=== PATIENT | female | born 1965 | race Hispanic/Latino ===

== ENCOUNTER 2016-09-17 22:58 | Inpatient (IN) | payer MEDICAID ==
[2016-09-17 23:55] VITALS: O2SAT 98
[2016-09-18] MEDS ORDERED: TDAP Vaccine 0.5 mL Syr IM ONE (00:32)
[2016-09-18 01:37] LABS: ADD MANUAL DIFF? NO
[2016-09-18 01:44] LABS: BASO # 0.03 K/mm3 (0.0-2.0); BASO % 0.4 % (0.0-3.0); EOS # 0.2 (0.0-0.7); EOS % 3.3 % (1.5-5.0); GRAN # 3.66 (1.4-6.5); GRAN % 54.9 % (50.0-68.0); HEMATOCRIT 28.3 % (36.0-48.0); LYMPH # 1.7 (1.2-3.4); LYMPH % 25.8 % (22.0-35.0); MEAN CELL VOLUME 88.7 fL (80.0-105.0); MEAN CORPUSCULAR HEMOGLOBIN 29.5 pg (25.0-35.0); MEAN CORPUSCULAR HGB CONC 33.2 g/dl (31.0-37.0); MEAN PLATELET VOLUME 9.2 fl (7.0-11.0); MONO % 15.6 % (1.0-6.0); PLATELET COUNT 240 10^3/uL (120.0-450.0); RED CELL DISTRIBUTION WIDTH 16.1 % (11.5-14.5); WHITE BLOOD COUNT 6.7 10^3/ul (4.5-11.0)
[2016-09-18 01:48] LABS: ALB/GLOB RATIO 1.1 (1.1-1.8); ALKALINE PHOSPHATASE 63 U/L (38-133); ALT/SGPT 26 U/L (7-56); AST/SGOT 35 U/L (15-39); BILIRUBIN,TOTAL 0.3 mg/dL (0.2-1.3); BLOOD UREA NITROGEN 27 mg/dL (7-21); CALCIUM 8.6 mg/dL (8.4-10.5); CARBON DIOXIDE 22 mmol/L (21-33); CHLORIDE 104 mmol/L (95-110); GFR AFRICAN-AMERICAN > 60; GLUCOSE,RANDOM 110 mg/dL (70-110); POTASSIUM 4.1 mmol/L (3.6-5.0); SODIUM 136 mmol/L (132-148); TOTAL PROTEIN 6.3 g/dL (5.8-8.3)
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
[2016-09-18 03:37] LABS: URINE BILIRUBIN NEGATIVE (NEGATIVE); URINE BLOOD NEGATIVE (NEGATIVE); URINE GLUCOSE (UA) NEGATIVE (NEGATIVE); URINE KETONE NEGATIVE (NEGATIVE); URINE LEUKOCYTE ESTERASE SMALL Leu/uL (NEGATIVE); URINE PROTEIN NEGATIVE mg/dL (<30 mg/dL); URINE UROBILINOGEN 0.2 E.U./dL (<1 E.U./dL)
[2016-09-18 03:57] LABS: URINE APPEARANCE SL CLOUDY (CLEAR); URINE COLOR YELLOW (YELLOW)
[2016-09-18 03:59] LABS: URINE BACTERIA FEW (NEG); URINE RBC 0 - 2 /hpf (0-2); URINE WBC 0 - 2 /hpf (0-6)
--- NOTE | 2016-09-18 07:30 | CT ---
PROCEDURE: CT HEAD WITHOUT CONTRAST. HISTORY: ams/depression COMPARISON: None available. TECHNIQUE: Axial computed tomography images were obtained through the head/brain without intravenous contrast. Radiation dose: Total exam DLP = 709.26 mGy-cm. This CT exam was performed using one or more of the following dose reduction techniques: Automated exposure control, adjustment of the mA and/or kV according to patient size, and/or use of iterative reconstruction technique. FINDINGS: HEMORRHAGE: No intracranial hemorrhage. BRAIN: No mass effect or edema. Mild cerebral atrophy and most prominent in the frontal lobes. Minimal periventricular chronic microvascular white matter ischemic change. No evidence of acute infarct. VENTRICLES: Unremarkable. No hydrocephalus. CALVARIUM: Unremarkable. PARANASAL SINUSES: Mild chronic ethmoid sinusitis. MASTOID AIR CELLS: Unremarkable as visualized. No inflammatory changes. OTHER FINDINGS: None. IMPRESSION: No intracranial mass, hemorrhage or evidence of acute infarct. Preliminary interpretation of this examination was reported by [facility] at 1:56 a.m. on 09/18/2016. There is concurrence of this report with the preliminary interpretation.
--- NOTE | 2016-09-18 07:56 | RAD ---
HISTORY: pes eval COMPARISON: No prior. FINDINGS: LUNGS: No active pulmonary disease. PLEURA: No significant pleural effusion identified, no pneumothorax apparent. CARDIOVASCULAR: Normal. OSSEOUS STRUCTURES: No significant abnormalities. VISUALIZED UPPER ABDOMEN: Normal. OTHER FINDINGS: None. IMPRESSION: No active disease.
--- NOTE | 2016-09-18 11:16 | CARD ---
APPROVED REPORT EKG Measurement Heart [id number] <Conclusion> Normal sinus rhythm Normal ECG
[2016-09-18] MEDS ORDERED: Magnesium Hydroxide Susp 30 ml UD PO PRN (14:38)
[2016-09-18] MEDS ORDERED: Alum-Mag Hydrox-Simethicone Susp (30 mL) PO PRN (14:39)
[2016-09-18] MEDS: Divalproex 500 mg DR(BID formulation) PO SCH (17:50)
[2016-09-19 08:30] LABS: CHOLESTEROL 131 mg/dL (130-200); GLUCOSE,FASTING 86 mg/dL (65-110)
[2016-09-19] MEDS: Divalproex 500 mg DR(BID formulation) PO SCH ×2 (08:51→16:23)
[2016-09-19] MEDS ORDERED: Albuterol-Ipratrop 3 mg / 0.5 (3 ml) UD IH PRN (12:49)
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
--- NOTE | 2016-09-19 13:48 | RAD ---
PROCEDURE: CHEST RADIOGRAPH, 1 VIEW HISTORY: r/o pneumonia COMPARISON: 09/19/2015 FINDINGS: LUNGS: Clear. PLEURA: No pneumothorax or pleural fluid seen. CARDIOVASCULAR: Normal. OSSEOUS STRUCTURES: No significant abnormalities. VISUALIZED UPPER ABDOMEN: Normal. OTHER FINDINGS: None. IMPRESSION: No active disease. . No pulmonary infiltrate appreciated
[2016-09-19] MEDS ORDERED: Budesonide 0.5 mg/2 ml Inhal Susp UD IH SCH (20:00)
[2016-09-19] MEDS ORDERED: Arformoterol 15 mcg/2 ml Inh Sol IH SCH (20:00)
[2016-09-19] MEDS ORDERED: Albuterol-Ipratrop 3 mg / 0.5 (3 ml) UD IH SCH (20:00)
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
[2016-09-20] MEDS: Divalproex 500 mg DR(BID formulation) PO SCH ×2 (08:23→16:02)
[2016-09-20] MEDS: Pantoprazole 40 mg EC Tab PO SCH (08:25)
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
[2016-09-21] MEDS: Divalproex 500 mg DR(BID formulation) PO SCH ×2 (08:56→18:17)
[2016-09-21] MEDS: Pantoprazole 40 mg EC Tab PO SCH (09:02)
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
[2016-09-22] MEDS: Pantoprazole 40 mg EC Tab PO SCH (08:14)
[2016-09-22] MEDS: Divalproex 500 mg DR(BID formulation) PO SCH ×2 (08:17→16:17)
--- NOTE | 2016-09-22 09:37 | PCM.PYCHPN ---
Psychiatric Progress Note - Psychiatric Progress Note Patient seen today, length of contact: 25 min Patient Chief Complaint: better Problems Identified/Issues Discussed: I reviewed recent notes and met with patient at bedside. She's calm, well- groomed and well-oriented to circumstances. Patient reports feeling better since admission and denies any new concerns. She feels more hopeful and denies wishes or suicidal thoughts. Affect demonstrates appropriate range and reactivity. Her thought process is coherent and responses are relevant to questioning. Delusions were not elicited. Regarding her comfort level, patient denies any new discomfort or pain. She has been tolerating her medications very well. Patient reports that sleep is fair except for continued nightmares. Nursing notes indicate the patient has been pleasant and superficially friendly. She remains in good control. There were no behavioral issues overnight. Diagnostic Results: Depressed and anxious Medication Change: No ( ) Medical Record Reviewed: Yes (reports, labs, vitals, notes) Mental Status Examination - Cognitive Function Orientation: Person, Place, Situation, Time Memory: Intact Attention: WNL Concentration: WNL Association: WNL Fund of Knowledge: WNL - Mood Mood: Neutral (better) - Affect Affect: Other (appropriately reactive) - Speech Speech: Appropriate - Formal Thought Process Formal Thought Process: No Impairment - Suicidal Ideation Suicidal Ideation: No - Homicidal Ideation Homicidal Ideation: No Goal/Treatment Plan - Goal/Treatment Plan Need for Continued Stay: Discharge may exacerbated symptoms (Working on appropriate placement) Progress Toward Problem(s) and Goals/Treatment Plan: * c/w current tx and plan * No new labs overnight * Vitals reviewed and noted below: Selected Entries 09/21/16 09/21/16 09/21/16 07:14 08:58 16:16 Temperature 97.0 F L Pulse Rate 59 L 60 62 Respiratory 20 Rate Blood Pressure 115/68 115/68 136/87 09/21/16 18:18 Temperature Pulse Rate 62 Respiratory Rate Blood Pressure 136/87
[2016-09-23] MEDS: Divalproex 500 mg DR(BID formulation) PO SCH ×2 (08:01→18:20)
[2016-09-23] MEDS: Pantoprazole 40 mg EC Tab PO SCH (08:02)
--- NOTE | 2016-09-23 08:39 | PCM.PYCHPN ---
Psychiatric Progress Note - Psychiatric Progress Note Patient seen today, length of contact: 25 min Patient Chief Complaint: better Problems Identified/Issues Discussed: I reviewed recent notes and met with patient at bedside. She's calm, well- groomed and well-oriented to circumstances. Patient reports feeling better since admission and denies any new concerns. She feels more hopeful and denies wishes or suicidal thoughts. Affect demonstrates appropriate range and reactivity. Her thought process is coherent and responses are relevant to questioning. Delusions were not elicited. Regarding her comfort level, patient denies any new discomfort or pain. She has been tolerating her medications very well. Anxiety is in better control with Ativan. Patient reports that sleep is "pretty good" except for continued nightmares. Nursing notes indicate the patient has been pleasant and superficially friendly. She remains in good control. There were no behavioral issues over the weekend. Diagnostic Results: Depressed and anxious Medication Change: No ( ) Medical Record Reviewed: Yes (reports, labs, vitals, notes) Mental Status Examination - Cognitive Function Orientation: Person, Place, Situation, Time Memory: Intact Attention: WNL Concentration: WNL Association: WNL Fund of Knowledge: WNL - Mood Mood: Neutral (better) - Affect Affect: Other (appropriately reactive) - Speech Speech: Appropriate - Formal Thought Process Formal Thought Process: No Impairment - Suicidal Ideation Suicidal Ideation: No - Homicidal Ideation Homicidal Ideation: No Goal/Treatment Plan - Goal/Treatment Plan Need for Continued Stay: Discharge may exacerbated symptoms (Working on appropriate placement) Progress Toward Problem(s) and Goals/Treatment Plan: * c/w current tx and plan * No new labs over the weekend * Vitals reviewed and noted below: Selected Entries 09/23/16 07:31 Temperature 97.7 F Pulse Rate 64 Respiratory 18 Rate Blood Pressure 148/94 H
[2016-09-24 06:45] VITALS: RESP 20
[2016-09-24] MEDS: Pantoprazole 40 mg EC Tab PO SCH (08:06)
[2016-09-24] MEDS: Divalproex 500 mg DR(BID formulation) PO SCH ×2 (08:06→16:04)
[2016-09-24 16:08] VITALS: PULSE 67
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
[2016-09-25] MEDS: Pantoprazole 40 mg EC Tab PO SCH (06:26)
[2016-09-25 07:10] VITALS: BP 112/74; TEMP 97.5
[2016-09-25] MEDS: Divalproex 500 mg DR(BID formulation) PO SCH (08:35)
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
== END 2016-09-25 14:00 | disposition home or self-care (01) | DRG 427 ==
LOC: ED 22:58 → ERH 09-18 11:29 → MERGE 09-18 11:29 → PSYC 09-18 12:31
PROVIDERS: ADMIT Psychiatry & Neurology Addiction Medicine; ATTEND Psychiatry & Neurology Addiction Medicine
PROC: GZ3ZZZZ Medication Management (ICD-10-PCS; principal; 2016-09-18)
DX: F43.24 Adjustment disorder with disturbance of conduct (principal); R45.851 Suicidal ideations; F39 Unspecified mood [affective] disorder; I10 Essential (primary) hypertension; N39.0 Urinary tract infection, site not specified; J44.9 Chronic obstructive pulmonary disease, unspecified; F41.9 Anxiety disorder, unspecified; F10.20 Alcohol dependence, uncomplicated; I25.10 Atherosclerotic heart disease of native coronary artery without angina pectoris; J06.9 Acute upper respiratory infection, unspecified; F51.5 Nightmare disorder; Z91.410 Personal history of adult physical and sexual abuse; Z59.0 Homelessness; I25.2 Old myocardial infarction

== ENCOUNTER 2016-10-06 13:50 | Inpatient (IN) | payer MEDICAID ==
[2016-10-06 14:01] VITALS: BMI 18.3
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
[2016-10-06 15:17] LABS: ADD MANUAL DIFF? NO
[2016-10-06 15:30] LABS: ALB/GLOB RATIO 1.2 (1.1-1.8); ALKALINE PHOSPHATASE 90 U/L (38-133); ALT/SGPT 22 U/L (7-56); AST/SGOT 30 U/L (15-39); BILIRUBIN,TOTAL 0.3 mg/dL (0.2-1.3); BLOOD UREA NITROGEN 19 mg/dL (7-21); CALCIUM 9.1 mg/dL (8.4-10.5); CARBON DIOXIDE 24 mmol/L (21-33); CHLORIDE 100 mmol/L (98-107); GFR AFRICAN-AMERICAN > 60; GLUCOSE,RANDOM 90 mg/dL (70-110); LIPASE 689 U/L (23-300); POTASSIUM 4.1 mmol/L (3.6-5.0); SODIUM 134 mmol/L (132-148); TOTAL PROTEIN 7.4 g/dL (5.8-8.3)
[2016-10-06 15:32] LABS: BASO # 0.03 K/mm3 (0.0-2.0); BASO % 0.5 % (0.0-3.0); EOS # 0.2 (0.0-0.7); EOS % 2.7 % (1.5-5.0); GRAN # 2.59 (1.4-6.5); GRAN % 44.4 % (50.0-68.0); HEMATOCRIT 32.2 % (36.0-48.0); LYMPH # 2.4 (1.2-3.4); LYMPH % 40.7 % (22.0-35.0); MEAN CORPUSCULAR HEMOGLOBIN 29.3 pg (25.0-35.0); MEAN CORPUSCULAR HGB CONC 32.9 g/dl (31.0-37.0); MEAN PLATELET VOLUME 9.6 fl (7.0-11.0); MONO # 0.7 (0.1-0.6); MONO % 11.7 % (1.0-6.0); PLATELET COUNT 230 10^3/uL (120.0-450.0); RED CELL DISTRIBUTION WIDTH 16.2 % (11.5-14.5); WHITE BLOOD COUNT 5.8 10^3/ul (4.5-11.0)
--- NOTE | 2016-10-06 15:44 | RAD ---
HISTORY: psych, cough COMPARISON: 09/19/2016 FINDINGS: LUNGS: No focal airspace opacity. PLEURA: No significant pleural effusion identified, no pneumothorax apparent. CARDIOVASCULAR: Normal. OSSEOUS STRUCTURES: No significant abnormalities. VISUALIZED UPPER ABDOMEN: Normal. OTHER FINDINGS: None. IMPRESSION: No focal airspace opacity. No significant interval change.
[2016-10-06 15:53] LABS: PH,URINE 6.5 (4.7-8.0); URINE BILIRUBIN NEGATIVE (NEGATIVE); URINE BLOOD NEGATIVE (NEGATIVE); URINE GLUCOSE (UA) NEGATIVE (NEGATIVE); URINE KETONE NEGATIVE (NEGATIVE); URINE LEUKOCYTE ESTERASE NEGATIVE Leu/uL (NEGATIVE); URINE PROTEIN NEGATIVE mg/dL (<30 mg/dL); URINE UROBILINOGEN 0.2 E.U./dL (<1 E.U./dL)
[2016-10-06 15:54] LABS: URINE APPEARANCE CLEAR (CLEAR); URINE COLOR YELLOW (YELLOW)
[2016-10-06 19:14] VITALS: O2SAT 97
[2016-10-07] MEDS ORDERED: Pantoprazole 40 mg EC Tab PO SCH (06:30)
[2016-10-07] MEDS: Divalproex 500 mg DR(BID formulation) PO SCH ×2 (09:00→17:58)
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
--- NOTE | 2016-10-07 10:29 | CARD ---
APPROVED REPORT EKG Measurement Heart [id number] <Conclusion> RSR Normal ECG No change
[2016-10-07 10:51] LABS: CHOLESTEROL 178 mg/dL (130-200)
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
[2016-10-08 06:53] VITALS: RESP 20
[2016-10-08] MEDS: Divalproex 500 mg DR(BID formulation) PO SCH ×3 (08:58→17:58)
[2016-10-08] MEDS: Pantoprazole 40 mg EC Tab PO SCH (09:04)
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
[2016-10-09] MEDS: Pantoprazole 40 mg EC Tab PO SCH (08:58)
[2016-10-09] MEDS: Divalproex 500 mg DR(BID formulation) PO SCH ×2 (08:58→16:56)
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
[2016-10-10 07:22] VITALS: BP 128/93; PULSE 56; TEMP 98.2
[2016-10-10] MEDS: Divalproex 500 mg DR(BID formulation) PO SCH (08:13)
[2016-10-10] MEDS: Pantoprazole 40 mg EC Tab PO SCH (08:14)
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
== END 2016-10-10 10:39 | disposition home or self-care (01) | DRG 427 ==
LOC: ED 13:50 → MERGE 18:03 → ERH 18:03 → PSYC 19:15
PROVIDERS: ADMIT Psychiatry & Neurology Psychiatry; ATTEND Psychiatry & Neurology Psychiatry
PROC: GZ3ZZZZ Medication Management (ICD-10-PCS; principal; 2016-10-06)
DX: F43.23 Adjustment disorder with mixed anxiety and depressed mood (principal); F60.3 Borderline personality disorder; F31.9 Bipolar disorder, unspecified; F10.20 Alcohol dependence, uncomplicated; I10 Essential (primary) hypertension; J44.9 Chronic obstructive pulmonary disease, unspecified; I25.10 Atherosclerotic heart disease of native coronary artery without angina pectoris; R19.7 Diarrhea, unspecified; F17.210 Nicotine dependence, cigarettes, uncomplicated; Z59.0 Homelessness; I25.2 Old myocardial infarction; Z90.49 Acquired absence of other specified parts of digestive tract

== ENCOUNTER 2017-01-08 13:35 | Observation (INO) | payer MEDICAID ==
[2017-01-08 13:37] VITALS: BMI 20.9
[2017-01-08] MEDS ORDERED: Folic Acid 1 MG, Thiamine 100 MG, Multivitamin (MVI) 10 ML in Dextrose 5%/0.45% NS 1,00... IV ONE (13:53)
--- NOTE | 2017-01-08 13:57 | ED PDOC ---
Arrival/HPI - General Time Seen by Provider: 01/08/17 13:38 Historian: Patient - History of Present Illness Narrative History of Present Illness (Text): 01/08/17 13:45 A 51 year old female, whose past medical history includes bipolar disorder and personality disorder, NM in 2005 and 2009, hypertension, etoh use, and depression, presents to the emergency department for chest pain, which began earlier today while power walking. The patient reports a "shock-like" pain on the right side of her chest, which worsens with deep breaths, shortness of breath, vomiting, dizziness, and mild dysuria. She admits to drinking one beer earlier today. The patient denies any headaches, cough, fever, back pain, changes in appetite, or any other complaints at this time. The patient notes that her and her extractor tender raw stock (Dr. Doherty) discussed to place in stents about 3 months ago, but the patient states she has not followed up. PMD: Dr. Scherer Time/Duration: 4-6 hours (earlier today) Symptom Onset: Sudden Symptom Course: Unchanged Activities at Onset: Light Context: Walking Past Medical History - Provider Review Nursing Documentation Reviewed: Yes - Infectious Disease Hx of Infectious Diseases: None - Tetanus Immunization Tetanus Immunization: Unknown - Cardiac Hx Coronary Artery Disease: Yes Hx Cardiac Arrhythmia: Yes - Pulmonary Hx Chronic Obstructive Pulmonary Disease (COPD): Yes Hx Pneumonia: Yes - Neurological Hx Migraine: Yes Hx Seizures: Yes (ETOH related) - HEENT Hx HEENT Disorder: No - Renal Hx Renal Disorder: No - Endocrine/Metabolic Hx Endocrine Disorders: No - Hematological/Oncological Hx Cancer: No - Integumentary Hx Dermatological Disorder: No - Musculoskeletal/Rheumatological Hx Fractures: Yes (right wrist due to fall) - Gastrointestinal Hx Gastrointestinal Disorders: No - Genitourinary/Gynecological Hx Sexually Transmitted Diseases: No - Psychiatric Hx Substance Use: Yes - Surgical History Hx Cholecystectomy: Yes - Anesthesia Hx Anesthesia: Yes Hx Anesthesia Reactions: No Hx Malignant Hyperthermia: No Family/Social History - Physician Review Nursing Documentation Reviewed: Yes Family/Social History: No Known Family HX Smoking Status: Heavy Smoker > 10 Cigarettes Daily Hx Alcohol Use: Yes Hx Substance Use: Yes Substance used: cocaine Allergies/Home Meds Allergies/Adverse Reactions: Allergies FISH Allergy (Verified 11/16/16 14:02) ITCHING Penicillins Adverse Reaction (Verified 11/16/16 14:02) URTICARIA Home Medications: Home Meds Medication Instructions Recorded Confirmed Divalproex [Depakote DR (*BID*)] 600 mg PO BID 12/23/16 01/08/17 Gabapentin [Neurontin] 900 mg PO BID 12/23/16 01/08/17 Review of Systems - Physician Review All systems were reviewed & negative as marked: Yes - Review of Systems Constitutional: absent: Fevers Respiratory: SOB Cardiovascular: Chest Pain Gastrointestinal: Vomiting. absent: Abdominal Pain Musculoskeletal: absent: Back Pain Neurological: Dizziness. absent: Headache Physical Exam Vital Signs Reviewed: Yes Vital Signs Temp Pulse Pulse Resp BP Pulse Ox 01/08/17 14:49 76 161/89 H 01/08/17 14:30 73 18 151/94 H 97 01/08/17 13:40 97.9 F 84 84 20 161/102 H 98 Temperature: Afebrile Blood Pressure: Hypertensive Pulse: Regular Respiratory Rate: Normal Appearance: Positive for: Well-Appearing, Non-Toxic, Comfortable Pain Distress: None Mental Status: Positive for: Alert and Oriented X 3 - Systems Exam Head: Present: Atraumatic, Normocephalic Pupils: Present: PERRL Conjunctiva: Present: Normal Mouth: Present: Moist Mucous Membranes Pharnyx: Present: Normal Neck: Present: Normal Range of Motion Respiratory/Chest: Present: Clear to Auscultation, Good Air Exchange. No: Respiratory Distress, Accessory Muscle Use Cardiovascular: Present: Regular Rate and Rhythm, Normal S1, S2. No: Murmurs Abdomen: Present: Normal Bowel Sounds. No: Tenderness, Distention, Peritoneal Signs Back: Present: Normal Inspection Upper Extremity: Present: Normal Inspection. No: Cyanosis, Edema Lower Extremity: Present: Normal Inspection. No: Edema Neurological: Present: GCS=15, CN II-XII Intact. No: Speech Normal (mild slurring of speech with alcohol on breath) Skin: Present: Warm, Dry, Normal Color. No: Rashes Psychiatric: Present: Alert, Oriented x 3, Normal Insight, Normal Concentration , Other (The patient has a light slurring of speech, consistent with alcohol use and she has alcohol on her breath. ) Medical Decision Making ED Course and Treatment: 01/08/17 13:55 Impression: A 51 year old female with chest pain with stated history of CAD. Differential Diagnosis included but are not limited to: muscular pain vs PE vs ACS vs GERD vs anxiety Plan: -- EKG -- Chest X-ray -- Labs -- Aspirin, IV fluids, Pepcid, Nitrostat -- Urinalysis -- Reassess and disposition Prior Visits: Notes and results from previous visits were reviewed. The patient was last seen in the emergency department on 12/23/16 for chest pain. The patient was discharged home. Progress Notes: 01/08/17 14:54 EKG: NSR @ 82; no ST/T changes; normal intervals; normal axis. Patient with history of CAD and is therefore high risk for ACS; initial EKG and CE are negative - will need further observation on tele. Discussed with Dr. Valle for placement on the hospitalist service. Minimal improvement with nitro and famotidine. Will give lopressor additionally and diazepam. - Lab Interpretations Lab Results: 01/08/17 13:45 01/08/17 13:45 Lab Results 01/08/17 13:45: Alcohol, Quantitative 166 H 01/08/17 13:45: Valproic Acid 64 01/08/17 13:45: Sodium 132, Potassium 4.4, Chloride 97 L, Carbon Dioxide 22, Anion Gap 17, BUN 22 H, Creatinine 0.7, Est GFR ( Amer) > 60, Est GFR ( Non-Af Amer) > 60, Random Glucose 86, Calcium 8.9, Magnesium 1.7, Total Bilirubin 0.3, AST 40 H, ALT 29, Alkaline Phosphatase 78, Lactate Dehydrogenase 581, Total Creatine Kinase 258 H, CK-MB (CK-2) 4.3 H, CK-MB (CK-2) % Cancelled, Troponin I < 0.01, NT-Pro-B Natriuret Pep 19.3, Total Protein 7.0, Albumin 4.3, Globulin 2.7, Albumin/Globulin Ratio 1.6, Lipase 235 01/08/17 13:45: PT 12.9 H, INR 1.19 H, APTT 32.4 H, D-Dimer, Quantitative 0.22 01/08/17 13:45: WBC 7.4 D, RBC 3.90, Hgb 11.1 L, Hct 33.1 L, MCV 84.9, MCH 28.5 , MCHC 33.5, RDW 16.7 H, Plt Count 269, MPV 9.4, Gran % 34.2 L, Lymph % (Auto) 51.4 H, Hanson % (Auto) 10.5 H, Eos % (Auto) 3.0, Baso % (Auto) 0.9, Gran # 2.53, Lymph # 3.8 H, Hanson # 0.8 H, Eos # 0.2, Baso # 0.07 - RAD Interpretation Radiology Orders: 01/08/17 13:52 CHEST PORTABLE [RAD] Stat - Medication Orders Current Medication Orders: Folic Acid 1 mg/ Thiamine HCl 100 mg/ Multivitamins/Vitamin C 10 ml/ Dextrose/ Sodium Chloride 1,011.2 mls @ 500 mls/hr IV ONCE ONE Stop: 01/08/17 15:54 Discontinued Medications Aspirin (Aspirin Chewable) 324 mg PO STAT STA Stop: 01/08/17 13:52 Last Admin: 01/08/17 14:11 Dose: 324 mg Diazepam (Valium) 5 mg PO ONCE ONE Stop: 01/08/17 14:30 Last Admin: 01/08/17 14:49 Dose: 5 mg Famotidine (Pepcid) 20 mg IVP STAT STA Stop: 01/08/17 13:53 Last Admin: 01/08/17 14:11 Dose: 20 mg Metoprolol Tartrate (Lopressor) 25 mg PO STAT STA Stop: 01/08/17 14:30 Last Admin: 01/08/17 14:49 Dose: 25 mg Nitroglycerin (Nitrostat Sl Tab) 0.4 mg SL STAT STA Stop: 01/08/17 13:52 Last Admin: 01/08/17 14:12 Dose: 0.4 mg - PA / EDITOR / Resident Statement MD/DO has reviewed & agrees with the documentation as recorded. - Scribe Statement The provider has reviewed the documentation as recorded by the John Paul Ochoa Provider Scribe Attestation: All medical record entries made by the John Paul were at my direction and personally dictated by me. I have reviewed the chart and agree that the record accurately reflects my personal performance of the history, physical exam, medical decision making, and the department course for this patient. I have also personally directed, reviewed, and agree with the discharge instructions and disposition. Disposition/Present on Arrival - Present on Arrival Any Indicators Present on Arrival: No History of DVT/PE: No History of Uncontrolled Diabetes: No Urinary Catheter: No History Surgical Site Infection Following: None - Disposition Have Diagnosis and Disposition been Completed?: Yes Diagnosis: Chest pain Disposition: HOSPITALIZED Disposition Time: 14:30 Patient Plan: Observation, Telemetry Condition: FAIR Discharge Instructions (ExitCare): Chest Pain (ED)
[2017-01-08 14:12] LABS: BASO # 0.07 K/mm3 (0.0-2.0); BASO % 0.9 % (0.0-3.0); EOS # 0.2 (0.0-0.7); GRAN # 2.53 (1.4-6.5); GRAN % 34.2 % (50.0-68.0); HEMOGLOBIN 11.1 g/dL (12.0-16.0); LYMPH # 3.8 (1.2-3.4); LYMPH % 51.4 % (22.0-35.0); MEAN CELL VOLUME 84.9 fl (80.0-105.0); MEAN CORPUSCULAR HEMOGLOBIN 28.5 pg (25.0-35.0); MEAN CORPUSCULAR HGB CONC 33.5 g/dl (31.0-37.0); MEAN PLATELET VOLUME 9.4 fl (7.0-11.0); MONO # 0.8 (0.1-0.6); MONO % 10.5 % (1.0-6.0); PLATELET COUNT 269 10^3/uL (120.0-450.0); RED CELL DISTRIBUTION WIDTH 16.7 % (11.5-14.5); WHITE BLOOD COUNT 7.4 10^3/ul (4.5-11.0)
[2017-01-08 14:15] LABS: ALB/GLOB RATIO 1.6 (1.1-1.8); ALBUMIN 4.3 g/dL (3.0-4.8); ALT/SGPT 29 U/L (7-56); AST/SGOT 40 U/L (15-39); BLOOD UREA NITROGEN 22 mg/dL (7-21); CALCIUM 8.9 mg/dL (8.4-10.5); GFR AFRICAN-AMERICAN > 60; GFR NON-AFRICAN AMERICAN > 60; LIPASE 235 U/L (23-300); MAGNESIUM 1.7 mg/dL (1.7-2.2)
[2017-01-08 14:17] LABS: D DIMER 0.22 mg/L FEU (0-0.50); INR 1.19 (0.93-1.08); PARTIAL THROMBOPLASTIN TIME 32.4 Seconds (23.7-30.8); PROTHROMBIN TIME 12.9 Seconds (9.9-11.8)
[2017-01-08 14:27] LABS: B-TYPE NATRIURETIC PEPTIDE 19.3 pg/mL (0-450); TROPONIN I < 0.01 ng/mL
[2017-01-08 14:30] LABS: CK-MB 4.3 ng/mL (0.0-3.6)
[2017-01-08 14:54] LABS: PH,URINE 6.5 (4.7-8.0); URINE BILIRUBIN NEGATIVE (NEGATIVE); URINE BLOOD NEGATIVE (NEGATIVE); URINE GLUCOSE (UA) NEGATIVE (NEGATIVE); URINE LEUKOCYTE ESTERASE NEGATIVE Leu/uL (NEGATIVE); URINE NITRATE NEGATIVE (NEGATIVE); URINE PROTEIN NEGATIVE mg/dL (<30 mg/dL); URINE UROBILINOGEN 0.2 E.U./dL (<1 E.U./dL)
[2017-01-08 14:58] LABS: URINE APPEARANCE CLEAR (CLEAR); URINE COLOR STRAW (YELLOW)
[2017-01-08 15:34] LABS: BARBITURATES, UR NEGATIVE (NEGATIVE); BENZODIAZEPINES, UR NEGATIVE (NEGATIVE); OPIATES, UR NEGATIVE (NEGATIVE); PHENCYCLIDINE, UR NEGATIVE (NEGATIVE)
--- NOTE | 2017-01-08 15:47 | CP.PCM.HP ---
<Jennifer Ventura - Last Filed: 01/08/17 20:35> History of Present Illness - History of Present Illness History of Present Illness: History & Physical CC: Chest pain, anxiety HPI: Pt is a 51 year old female with PMH of alcoholism, bipolar disorder, depression, HTN, COPD, AR x2 (2007, 2005), and "mild stroke" (2005), who presents today for complaints of right sided chest pain that began this afternoon. Patient describeds the pain as constant and pressure-like, rated 8/ 10, and is associated with SOB and high blood pressure (pt reports BP of 234/ 102 at that time). Patient states that she took Lisinopril and Clopidegrel this morning, but did not take anything for the chest pain after it began. She reports that after the onset of pain, she drank a large beer. Patient had 2 episodes of vomiting yesterday. Patient states that she had a stress test done 8 months ago, and last saw her manager critical care unit, Dr. Batres, 4 months ago, and was told both times that she needed a stent. She was seen at [facility] in August 2016, was seen by a manager critical care unit and had a normal echogardiogram; she was advised to continue ASA, Plavix, Lipitor, and Vasotec at that time. Pt additionally reports that she has been feeling very anxious lately. She states that she is currently under [place] [address] and does not have a place to live, and she is very stressed about this. She also states that she is a recovering alcoholic. She has been admitted in the past for psychiatric evaluation. Pt is a poor historian. Pt arrived to the hospital ambulatory. She was seen in the ED where she had labwork (negative cardiac enzymes, d-dimer), EKG and CXR which were normal, and was given Nitroglycerin, Pepcid, Lopressor, and Valium. PMD: Deondre Scherer Hand Spring Repairer Helper: Dr. Batres PMHX: HTN, AR x 2, CVA, seizures, COPD, depression, bipolar disorder, alcoholism PSHX: Tubal ligation Meds: Lisinopril, Clopidogrel, Neurontin, Depakote, Seroquel, Naltrexone All: PCN (anaphylaxis), fish Family hx: HTN, child has cystic fibrosis, grandmother had cervical CA Social hx: - smoking x 20 years (2-4 cigarettes per day) - EtOH - recovering alcoholic, (last beer was today) - former cocaine user - pt is homeless ROS: Constitutional: Denies fevers, chills HEENT: Denies cough, congestion CV: Chest pain Resp: (+) SOB, denies cough GI: Denies abdominal pain, (+) vomiting x 2 episodes yesterday : Denies hematuria Neuro: Denies weakness or paresthesias Psych: (+) anxiety, (+) bipolar disorder Present on Admission - Present on Admission Any Indicators Present on Admission: No History of DVT/PE: No History of Uncontrolled Diabetes: No Urinary Catheter: No Decubitus Ulcer Present: No Past Patient History - Infectious Disease Hx of Infectious Diseases: None - Tetanus Immunizations Tetanus Immunization: Unknown - Past Medical History & Family History Past Medical History?: Yes - Past Social History Smoking Status: Heavy Smoker > 10 Cigarettes Daily - CARDIAC Hx Cardia Arrhythmia: Yes - PULMONARY Hx Chronic Obstructive Pulmonary Disease (COPD): Yes Hx Pneumonia: Yes - NEUROLOGICAL Hx Migraine: Yes Hx Seizures: Yes (ETOH related) - HEENT Hx HEENT Problems: No - RENAL Hx Chronic Kidney Disease: No - ENDOCRINE/METABOLIC Hx Endocrine Disorders: No - HEMATOLOGICAL/ONCOLOGICAL Hx Cancer: No - INTEGUMENTARY Hx Dermatological Problems: No - MUSCULOSKELETAL/RHEUMATOLOGICAL Hx Fractures: Yes (right wrist due to fall) - GASTROINTESTINAL Hx Gastrointestinal Disorders: No - GENITOURINARY/GYNECOLOGICAL Hx Sexually Transmitted Disorders: No - PSYCHIATRIC Hx Substance Use: Yes - SURGICAL HISTORY Hx Cholecystectomy: Yes - ANESTHESIA Hx Anesthesia: Yes Hx Anesthesia Reactions: No Hx Malignant Hyperthermia: No Meds Home Medications: Home Medication List Medication Instructions Recorded Confirmed Type Aspirin [Ecotrin] 81 mg PO DAILY 01/09/17 Rx Atorvastatin [Lipitor] 10 mg PO DIN tab 01/09/17 Rx Clopidogrel [Plavix] 75 mg PO DAILY tab 01/09/17 Rx Folic Acid 1 mg PO DAILY #20 tab 01/09/17 Rx Gabapentin [Neurontin] 900 mg PO BID cap 01/09/17 Rx Lisinopril [Zestril] 10 mg PO DAILY tab 01/09/17 Rx Multivitamin Therapeutic Tab 1 tab PO 0800 #20 tab 01/09/17 Rx [Thera Tab] Naproxen [Anaprox DS] 550 mg PO BID #10 tab 01/09/17 Rx Nicotine 14 mg/24 hr [Nicoderm CQ] 1 patch TD DAILY #10 patch 01/09/17 Rx Pantoprazole [Protonix EC Tab] 40 mg PO ACB #30 ect 01/09/17 Rx Thiamine [Vitamin B1 Tab] 100 mg PO DAILY #30 tab 01/09/17 Rx Valproic Acid [Depakene] 500 mg PO BID sgl 01/09/17 Rx chlordiazePOXIDE [Librium] 50 mg PO Q4 #10 cap 01/09/17 Rx Allergies/Adverse Reactions: Allergies Allergy/AdvReac Type Severity Reaction Status Date / Time FISH Allergy ITCHING Verified 01/08/17 16:31 Penicillins AdvReac URTICARIA Verified 01/08/17 16:31 Physical Exam - Head Exam Head Exam: NORMAL INSPECTION - Eye Exam Eye Exam: EOMI, Normal appearance - Neck Exam Neck exam: Positive for: Full Rom, Normal Inspection - Respiratory Exam Respiratory Exam: Clear to Auscultation Bilateral, NORMAL BREATHING PATTERN. absent: Accessory Muscle Use, Respiratory Distress - Cardiovascular Exam Cardiovascular Exam: REGULAR RHYTHM. absent: Bradycardia, Tachycardia - GI/Abdominal Exam GI & Abdominal Exam: Normal Bowel Sounds - Extremities Exam Extremities exam: Positive for: full ROM, normal inspection - Neurological Exam Neurological exam: Alert, Normal Gait, Oriented x3 - Skin Skin Exam: Dry, Intact, Normal Color, Warm - Additional Findings Additional findings: PE: General: AAOx3, anxious, in mild distress Head: Normocephalic Skin: Warm, dry, not diaphoretic HEENT: Mucous membranes moist Heart and chest: Regular rate and rhythm, normal S1/S2, no murmurs, gallops, or rubs. (+) Reproducible R sided chest wall tenderness. Respiratory: Lungs CTA bilaterally, no rales, rhonchi, or wheezing GI: Abdomen soft, nondistended, nontender, no rebound or guarding Extremities: Good distal pulses, no lower extremity edema Neuro: CN 2-12 intact, patient is speaking without difficulty, moving all extremities. Psych: Patient is anxious, normal affect and mood. Results - Vital Signs Recent Vital Signs: Last Vital Signs Temp 97.9 F 01/08/17 13:40 Pulse 76 01/08/17 14:49 Resp 18 01/08/17 14:30 BP 161/89 H 01/08/17 14:49 Pulse Ox 97 01/08/17 14:30 - Labs Result Diagrams: 01/08/17 13:45 01/08/17 13:45 Labs: Laboratory Results - last 24 hr 01/08/17 01/08/17 14:36 15:00 Urine Color Straw Urine Appearance Clear Urine pH 6.5 Ur Specific [place] <= 1.005 Urine Protein Negative Urine Glucose (UA) Negative Urine Ketones Negative Urine Blood Negative Urine Nitrate Negative Urine Bilirubin Negative Urine Urobilinogen 0.2 Ur Leukocyte Esterase Negative Urine Opiates Screen Negative Urine Methadone Screen Negative Ur Barbiturates Screen Negative Ur Phencyclidine Scrn Negative Ur Amphetamines Screen Negative U Benzodiazepines Scrn Negative U Oth Cocaine Metabols Negative U Cannabinoids Screen Negative Assessment & Plan - Assessment and Plan (Free Text) Assessment: 51F presents with reproducible chest pain on right side. Patient has a past medical history of drug abuse, alcohol abuse and CAD. Plan: Assessment and Plan: 1. Chest pain, r/o ACS - repeat cardiac enzymes - IV fluids & pain control - cardiac consult - cardiac monitoring 2. Hypertension - monitor BP 3. Anxiety - Ativan as needed - psychiatric consult - social work consult 4. Alcohol abuse - aspiration precautions 5. H/O seizures - seizure precautions - continue Neurontin and Depakote Jennifer Ventura DO PGY1 - Date & Time Date: 01/08/17 Time: 20:30 <Lali Akhtar - Last Filed: 01/09/17 15:42> Results - Vital Signs Recent Vital Signs: Last Vital Signs Temp 98.2 F 01/09/17 12:00 Pulse 69 01/09/17 12:00 Resp 20 01/09/17 12:00 BP 130/76 01/09/17 12:00 Pulse Ox 98 01/09/17 05:38 - Labs Result Diagrams: 01/08/17 13:45 01/08/17 13:45 Labs: Laboratory Results - last 24 hr 01/08/17 01/08/17 01/09/17 15:45 20:40 02:05 Hemoglobin A1c 5.5 Troponin I < 0.01 < 0.01 Attending/Attestation - Attestation I have personally seen and examined this patient.: Yes I have fully participated in the care of the patient.: Yes I have reviewed all pertinent clinical information: Yes Notes (Text): 01/09/17 15:38 attending note; Patient seen and examined with resident in ER. Patient is a 51 year old female with PMH of alcoholism, anxiety depression, HTN , COPD,??? AR x2 (2007, 2005), and "mild stroke" (2005), who presents today for complaints of right sided chest pain that began this afternoon. patient has very unreliable history. History of AR and stroke not confirmed. Patient is currently complaining left-sided chest pain.admit to telemetry. Cardiac enzymes 3 ordered. Cardiology evaluation requested. elevated alcohol level: continue CIWA protocol. IV Ativan when necessary ordered for anxiety. psychiatric evaluation Requested. We will contact patient's primary manager critical care unit Dr. batres. Patient follows up with PMD Dr. Scherer.
[2017-01-08 15:48] LABS: HDL CHOLESTEROL 88 mg/dL (29-60)
[2017-01-08 15:59] LABS: LDL CHOLESTEROL 66 mg/dL (0-129)
--- NOTE | 2017-01-08 17:12 | RAD ---
HISTORY: Chest pain COMPARISON: 10/06/2016 FINDINGS: LUNGS: The lungs are well inflated. There is bibasilar subsegmental atelectasis. No focal consolidation. PLEURA: No significant pleural effusion identified, no pneumothorax apparent. CARDIOVASCULAR: Normal. OSSEOUS STRUCTURES: No significant abnormalities. VISUALIZED UPPER ABDOMEN: Normal. OTHER FINDINGS: None. IMPRESSION: No active pulmonary disease.
[2017-01-08] MEDS ORDERED: Divalproex 250 mg DR (BID formulation) PO SCH (18:00)
[2017-01-08] MEDS ORDERED: GABAPENTIN 900 MG PO SCH (18:00)
[2017-01-08] MEDS: Naproxen 550 mg Tab PO SCH (21:31)
--- NOTE | 2017-01-08 21:37 | CARD ---
APPROVED REPORT EKG Measurement Heart [id number] <Conclusion> Normal sinus rhythm Normal ECG
--- NOTE | 2017-01-09 01:44 | CON ---
DATE: 01/08/2017 LOCATION: The patient is in room 272, bed 2. REASON FOR CONSULTATION: Chest pain. HISTORY OF PRESENT ILLNESS: The patient is a 51-year-old female who has history of bipolar disorder, personality disorder, history of heavy drinking until 16 days ago, admitted with history since last 5 days. She has pain on the right lower chest along the sternal border, and the patient has local tenderness at that point, also it gets worse with breathing, also it gets worse with moving side to side. It as no relation to exertion. The patient states that last year she had stress test with Dr. Doherty at [facility], and it was told to be abnormal and she was suggested CAT, but she refused. The patient denies prior to discharge pain,any exertional chest pain. The patient states that 6 months ago, she was told she had high cholesterol, and she is known to have also COPD, seizure disorder related to alcohol, and migraine. PAST HISTORY: Positive for cholecystectomy, COPD, seizure disorder due to alcohol intake and migraine. PERSONAL HISTORY: Drinking habit till 16 days ago, but emergency room note mentioned that she also took one beer this morning. She states that she is still smoking 2 to 3 cigarettes a day. FAMILY HISTORY: She states that her grandmother had coronary artery disease. ALLERGIES: THE PATIENT IS ALLERGIC TO PENICILLIN AND FISH. MEDICATIONS AT HOME: She was taking atorvastatin, lisinopril, Plavix, Neurontin, and Depakote. REVIEW OF SYSTEMS: All the systems reviewed. Positive as mentioned in the history, others are negative. PHYSICAL EXAMINATION VITAL SIGNS: Blood pressure 148/95, respirations 18, pulse 62, and temperature 98.1. HEENT: Head is normocephalic. Eyes, pupils normal. Conjunctivae normal. Nose and throat normal. NECK: JVP low. Carotids equal. Thorax: AP diameter normal. LUNGS: Clear. CARDIOPULMONARY: S1 and S2. CHEST WALL: The patient has tenderness by the right sternal border, the area of the pain. ABDOMEN: Soft, nontender, no organomegaly. Bowel sounds normal. EXTREMITIES: No clubbing, no cyanosis, and no edema. LABORATORY DATA: EKG showed regular sinus rhythm, nonspecific ST-T changes. WBC 7.4, hemoglobin 11.1, hematocrit 33.1, and platelets 269. Sodium 132, potassium 4.4, BUN 22, and creatinine 0.7. Calcium, magnesium, and bilirubin normal. Troponin less than 0.01. Cholesterol 165, LDL 66, and HDL 88. TSH 0.79. Chest x-ray, no active pulmonary disease. DIAGNOSES: Chest pain, probably musculoskeletal with local tenderness, hypertension, bipolar disorder, personality disorder, history of migraine, seizure disorder due to alcoholism, and chronic obstructive pulmonary disease. PLAN: We will put the patient on naproxen 550 b.i.d. along with Protonix 40 daily. The patient is on valproic acid 500 mg b.i.d., folic acid 1 mg daily, gabapentin 900 mg b.i.d., Protonix has already been started 40 p.o. daily, and thiamine 100 mg daily. We will try to get stress test report from [facility] which was done last year and which according to the patient was abnormal. The patient follow with corduroy cutter operator in [place] Dr. Doherty. We will also add atorvastatin. The patient states she was taking at home. She does not remember the dose, but I will start 10 mg. We will follow. Noel Townsend MD
[2017-01-09 05:39] VITALS: O2SAT 98
[2017-01-09] MEDS ORDERED: Pantoprazole 40 mg EC Tab PO SCH (07:30)
--- NOTE | 2017-01-09 07:37 | CP.PCM.PN ---
Subjective - Date & Time of Evaluation Date of Evaluation: 01/09/17 Time of Evaluation: 07:33 - Subjective Subjective: PT S&E at bedside. DONNIEKeyannaON. Patient states she had a stress test at [facility]. Patient did not according to records. Will contact Dr. Doherty in [facility] to see if patient was seen there for a stent placement ([phone], spoke to biscuit packer of Dr. Mauricio Doherty at [facility] who did a stent placement of a Jade Lewis with the same date of as PT and biscuit packer stated patient had been seen by Dr. Doherty for an inpatient cath. Normal LVF found, non-critical CAD. No need for stent placement. Patient never followed up with the office after procedure). Patient denies F/C, N/V. Patient admits to Objective - Vital Signs/Intake and Output Vital Signs (last 24 hours): Temp Pulse Resp BP Pulse Ox 97.7 F 57 L 18 126/82 98 01/09/17 05:38 01/09/17 05:38 01/09/17 05:38 01/09/17 05:38 01/09/17 05:38 Intake and Output: 01/09/17 01/09/17 06:59 18:59 Intake Total 360 Balance 360 - Medications Medications: Current Medications Aspirin (Ecotrin) 81 mg PO DAILY [facility] Atorvastatin Calcium (Lipitor) 10 mg PO DIN [facility] Last Admin: 01/08/17 21:30 Dose: 10 mg Clopidogrel Bisulfate (Plavix) 75 mg PO DAILY [facility] Folic Acid (Folic Acid) 1 mg PO DAILY [facility] Gabapentin (Neurontin) 900 mg PO BID [facility] Last Admin: 01/08/17 17:52 Dose: 900 mg Lisinopril (Zestril) 10 mg PO DAILY [facility] Lorazepam (Ativan) 1 mg IVP Q3 PRN; Protocol PRN Reason: Anxiety Multivitamins (Thera Tab) 1 tab PO 0800 [facility] Naproxen (Anaprox Ds) 550 mg PO BID [facility] Last Admin: 01/08/17 21:31 Dose: 550 mg Pantoprazole Sodium (Protonix Ec Tab) 40 mg PO ACB [facility] Thiamine HCl (Vitamin B1 Tab) 100 mg PO DAILY [facility] Valproate Sodium (Depakene) 500 mg PO BID [facility] Last Admin: 01/08/17 17:53 Dose: 500 mg - Labs Labs: PT 12.9 Seconds (9.9-11.8) H 01/08/17 13:45 INR 1.19 (0.93-1.08) H 01/08/17 13:45 APTT 32.4 Seconds (23.7-30.8) H 01/08/17 13:45
[2017-01-09] MEDS ORDERED: Multivitamin Therapeutic Tab PO SCH (08:00)
[2017-01-09] MEDS: Naproxen 550 mg Tab PO SCH (09:54)
[2017-01-09 12:36] VITALS: RESP 20
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
--- NOTE | 2017-01-09 13:45 | PN ---
DATE: 01/09/2017 REASON FOR CONSULTATION: Chest pain. BRIEF CLINICAL HISTORY: This is a 51-year-old female with history of bipolar disorder, history of alcohol abuse, admitted with chest pain with atypical tenderness of the chest, admitted with alcoholic intoxication, and blood alcohol level is 166. Chest pain, is still having tenderness of the chest. SUBJECTIVE: Complaining of chest pain, which is tender on the chest. On pressing, the patient complains of chest pain, having the breakfast. OBJECTIVE: GENERAL: Lying flat in the bed, not in apparent distress. VITAL SIGNS: As follows; temperature afebrile, heart rate 57, and blood pressure 126/82. HEENT: PERRLA. Extraocular muscles intact. NECK: Supple. No carotid bruits or thyromegaly. CHEST: Clear to auscultation. HEART: S1 and S2 regular. ABDOMEN: Soft. EXTREMITIES: Clubbing and cyanosis negative. LABORATORY DATA: Blood workup as follows; blood alcohol level 166 and urine tox screen was negative for any substance. Chemistry as of yesterday shows sodium 138, potassium 4.4, chloride 97, carbon dioxide 22, anion gap of 17, BUN 22, and creatinine 0.7. Cholesterol level yesterday shows a triglyceride 98, total cholesterol 165, LDL 66, HDL 88, TSH 0.79, and troponin 0.01 x3 negative. WBC 7.4, hemoglobin 11.1, hematocrit 33.1, and platelet count 269. IMPRESSION: A 51-year-old female with a past medical history significant for alcohol abuse, chronic obstructive pulmonary disease, seizure disorder due to alcohol, and history of migraine, admitted here with chest pain, which is atypical, tenderness in the chest, and admitting blood alcohol level is 166 with alcoholic intoxication. The patient claims that she had in [facility] being seen by Dr. Doherty and she had a stress test there and was found to be abnormal and cardiac catheterization was offered, but the patient refused cardiac catheterization. She is still complaining of some chest pain, but so far all troponins are negative. No evidence of acute myocardial infarction. The patient had echocardiography done in 09/04/2016 in [facility] read by Dr. Ferrer that shows a normal size left ventricle, normal left ventricular function, ejection fraction was reported within normal limits. No segmental wall motion abnormality noted, Transmitral Doppler flow pattern suggestive of grade 1 diastolic dysfunction, right ventricular systolic pressure 28 within normal limits, no aortic regurgitation was noted, no mitral stenosis, and no mitral regurgitation was noted. Trace tricuspid regurgitation was noted dated 09/04/2016 in [facility]. As mentioned so far, troponin is negative and blood alcohol level was 166, the patient admitted with alcoholic intoxication. History of chronic obstructive pulmonary disease, history of seizure disorder, and history of migraine. RECOMMENDATIONS: We will get a copy from Dr. Doherty's office and if the patient is really abnormal and needs a cardiac catheterization, suggest cardiac catheterization, but so far no evidence of acute coronary syndrome, also office given the patient upon discharge, the patient can follow with Dr. Doherty, reinforcing bar setter. Thank you Dr. Akhtar for providing me the opportunity in taking care of Jade Shabazz. Noel Lai MD cc: Noel Lai MD, Lali Akhtar MD
--- NOTE | 2017-01-09 15:47 | CP.PCM.DIS ---
<LorenzoJennifer - Last Filed: 01/09/17 15:44> Provider - Provider Date of Admission: 01/08/17 14:31 Attending physician: Lali Akhtar MD Primary care physician: Roman Scherer Jr, MD Consults: Cardio Dr. Jaimie Dawn Time Spent in preparation of Discharge (in minutes): 20 Hospital Course - Lab Results Lab Results: Most Recent Lab Values WBC 7.4 10^3/ul (4.5-11.0) D 01/08/17 13:45 RBC 3.90 10^6/uL (3.5-6.1) 01/08/17 13:45 Hgb 11.1 g/dL (12.0-16.0) L 01/08/17 13:45 Hct 33.1 % (36.0-48.0) L 01/08/17 13:45 MCV 84.9 fl (80.0-105.0) 01/08/17 13:45 MCH 28.5 pg (25.0-35.0) 01/08/17 13:45 MCHC 33.5 g/dl (31.0-37.0) 01/08/17 13:45 RDW 16.7 % (11.5-14.5) H 01/08/17 13:45 Plt Count 269 10^3/uL (120.0-450.0) 01/08/17 13:45 MPV 9.4 fl (7.0-11.0) 01/08/17 13:45 Gran % 34.2 % (50.0-68.0) L 01/08/17 13:45 Lymph % (Auto) 51.4 % (22.0-35.0) H 01/08/17 13:45 Madison % (Auto) 10.5 % (1.0-6.0) H 01/08/17 13:45 Eos % (Auto) 3.0 % (1.5-5.0) 01/08/17 13:45 Baso % (Auto) 0.9 % (0.0-3.0) 01/08/17 13:45 Gran # 2.53 (1.4-6.5) 01/08/17 13:45 Lymph # 3.8 (1.2-3.4) H 01/08/17 13:45 Madison # 0.8 (0.1-0.6) H 01/08/17 13:45 Eos # 0.2 (0.0-0.7) 01/08/17 13:45 Baso # 0.07 K/mm3 (0.0-2.0) 01/08/17 13:45 PT 12.9 Seconds (9.9-11.8) H 01/08/17 13:45 INR 1.19 (0.93-1.08) H 01/08/17 13:45 APTT 32.4 Seconds (23.7-30.8) H 01/08/17 13:45 D-Dimer, Quantitative 0.22 mg/L FEU (0-0.50) 01/08/17 13:45 Sodium 132 mmol/L (132-148) 01/08/17 13:45 Potassium 4.4 mmol/L (3.6-5.0) 01/08/17 13:45 Chloride 97 mmol/L (98-107) L 01/08/17 13:45 Carbon Dioxide 22 mmol/L (21-33) 01/08/17 13:45 Anion Gap 17 (10-20) 01/08/17 13:45 BUN 22 mg/dL (7-21) H 01/08/17 13:45 Creatinine 0.7 mg/dL (0.5-1.4) 01/08/17 13:45 Est GFR ( Amer) > 60 01/08/17 13:45 Est GFR (Non-Af Amer) > 60 01/08/17 13:45 Random Glucose 86 mg/dL (70-110) 01/08/17 13:45 Hemoglobin A1c 5.5 % (4.2-6.5) 01/08/17 15:45 Calcium 8.9 mg/dL (8.4-10.5) 01/08/17 13:45 Magnesium 1.7 mg/dL (1.7-2.2) 01/08/17 13:45 Total Bilirubin 0.3 mg/dL (0.2-1.3) 01/08/17 13:45 AST 40 U/L (15-39) H 01/08/17 13:45 ALT 29 U/L (7-56) 01/08/17 13:45 Alkaline Phosphatase 78 U/L (38-133) 01/08/17 13:45 Lactate Dehydrogenase 581 U/L (333-699) 01/08/17 13:45 Total Creatine Kinase 258 U/L (35-230) H 01/08/17 13:45 CK-MB (CK-2) 4.3 ng/mL (0.0-3.6) H 01/08/17 13:45 CK-MB (CK-2) % Cancelled 01/08/17 13:45 Troponin I < 0.01 ng/mL 01/09/17 02:05 NT-Pro-B Natriuret Pep 19.3 pg/mL (0-450) 01/08/17 13:45 Total Protein 7.0 g/dL (5.8-8.3) 01/08/17 13:45 Albumin 4.3 g/dL (3.0-4.8) 01/08/17 13:45 Globulin 2.7 gm/dL 01/08/17 13:45 Albumin/Globulin Ratio 1.6 (1.1-1.8) 01/08/17 13:45 Triglycerides 98 mg/dL (35-160) 01/08/17 13:45 Cholesterol 165 mg/dL (130-200) 01/08/17 13:45 LDL Cholesterol Direct 66 mg/dL (0-129) 01/08/17 13:45 HDL Cholesterol 88 mg/dL (29-60) H 01/08/17 13:45 Lipase 235 U/L (23-300) 01/08/17 13:45 TSH 3rd Generation 0.79 mIU/mL (0.46-4.68) 01/08/17 13:45 Urine Color Straw (YELLOW) 01/08/17 14:36 Urine Appearance Clear (CLEAR) 01/08/17 14:36 Urine pH 6.5 (4.7-8.0) 01/08/17 14:36 Ur Specific [place] <= 1.005 (1.005-1.035) 01/08/17 14:36 Urine Protein Negative mg/dL (<30 mg/dL) 01/08/17 14:36 Urine Glucose (UA) Negative mg/dL (NEGATIVE) 01/08/17 14:36 Urine Ketones Negative mg/dL (NEGATIVE) 01/08/17 14:36 Urine Blood Negative (NEGATIVE) 01/08/17 14:36 Urine Nitrate Negative (NEGATIVE) 01/08/17 14:36 Urine Bilirubin Negative (NEGATIVE) 01/08/17 14:36 Urine Urobilinogen 0.2 E.U./dL (<1 E.U./dL) 01/08/17 14:36 Ur Leukocyte Esterase Negative Glory/uL (NEGATIVE) 01/08/17 14:36 Urine Opiates Screen Negative (NEGATIVE) 01/08/17 15:00 Urine Methadone Screen Negative (NEGATIVE) 01/08/17 15:00 Ur Barbiturates Screen Negative (NEGATIVE) 01/08/17 15:00 Valproic Acid 64 ug/mL (50.0-100.0) 01/08/17 13:45 Ur Phencyclidine Scrn Negative (NEGATIVE) 01/08/17 15:00 Ur Amphetamines Screen Negative (NEGATIVE) 01/08/17 15:00 U Benzodiazepines Scrn Negative (NEGATIVE) 01/08/17 15:00 U Oth Cocaine Metabols Negative (NEGATIVE) 01/08/17 15:00 U Cannabinoids Screen Negative (NEGATIVE) 01/08/17 15:00 Alcohol, Quantitative 166 mg/dL (0-10) H 01/08/17 13:45 - Hospital Course Hospital Course: Progress Note for Dr. Akhtar Patient was admitted to rule out ACS from chest pain that was reproducible on the right side. Negative Troponins. Normal EKG PT S&E at bedside. NAEON. Patient states she had a stress test at [facility]. Patient did not according to records. Will contact Dr. Doherty in [facility] to see if patient was seen there for a stent placement ([phone], spoke to sales secretary of Dr. Mauricio Doherty at [facility] who did a stent placement of a Jade Lewis with the same date of as PT and sales secretary stated patient had been seen by Dr. Doherty for an inpatient cath. Normal LVF found, non-critical CAD. No need for stent placement. Patient never followed up with the office after procedure). Patient is admitted to psychiatry. No medical interventions needed at this time - Date & Time of H&P Date of H&P: 01/09/17 Time of H&P: 15:44 Discharge Exam - Head Exam Head Exam: ATRAUMATIC, NORMOCEPHALIC - Eye Exam Eye Exam: EOMI, Normal appearance - ENT Exam ENT Exam: Mucous Membranes Moist - Neck Exam Neck exam: Full Rom, Normal Inspection - Respiratory Exam Respiratory Exam: Clear to PA & Lateral, NORMAL BREATHING PATTERN, UNREMARKABLE. absent: Accessory Muscle Use, Respiratory Distress - Cardiovascular Exam Cardiovascular Exam: REGULAR RHYTHM. absent: Bradycardia, Tachycardia - GI/Abdominal Exam GI & Abdominal Exam: Normal Bowel Sounds, Unremarkable. absent: Diminished Bowel Sounds, Hyperactive Bowel Sounds, Organomegaly, Tenderness - Psychiatric Exam Psychiatric exam: Anxious, Normal Affect, Normal Mood - Skin Skin Exam: Dry, Intact, Normal Color, Warm Discharge Plan - Discharge Medications Prescriptions: chlordiazePOXIDE [Librium] 50 mg PO Q4 #10 cap Folic Acid 1 mg PO DAILY #20 tab Multivitamin Therapeutic Tab [Thera Tab] 1 tab PO 0800 #20 tab Naproxen [Anaprox DS] 550 mg PO BID #10 tab Nicotine 14 mg/24 hr [Nicoderm CQ] 1 patch TD DAILY #10 patch Pantoprazole [Protonix EC Tab] 40 mg PO ACB #30 ect Thiamine [Vitamin B1 Tab] 100 mg PO DAILY #30 tab - Follow Up Plan Condition: FAIR Disposition: HOME/ ROUTINE Instructions: Chest Pain (DC), Chest Pain (GEN), How to Stop Smoking (DC), Cigarette Smoking and Your Health (GEN), Alcohol Intoxication (DC), Abuse of Alcohol (DC) Additional Instructions: 1. continue with current home medication 2. follow up with speeder frame tender in one week 3. follow up with primary care doctor in one week, Dr Pierre 4. return to ED if chest pain worsens, shortness of breath, difficulties breathing with exertion Nursing If you begin to experience chest pain, shortness of breath, your symptoms return or any changes, return to the nearest emergency room or call 911 See care notes for further instructions Referrals: Roman Scherer Jr., MD [Primary Care Provider] - <Lali Akhtar - Last Filed: 01/09/17 17:15> Provider - Provider Date of Admission: 01/08/17 14:31 Attending physician: Lali Akhtar MD Primary care physician: Roman Scherer Jr, MD Hospital Course - Lab Results Lab Results: Most Recent Lab Values WBC 7.4 10^3/ul (4.5-11.0) D 01/08/17 13:45 RBC 3.90 10^6/uL (3.5-6.1) 01/08/17 13:45 Hgb 11.1 g/dL (12.0-16.0) L 01/08/17 13:45 Hct 33.1 % (36.0-48.0) L 01/08/17 13:45 MCV 84.9 fl (80.0-105.0) 01/08/17 13:45 MCH 28.5 pg (25.0-35.0) 01/08/17 13:45 MCHC 33.5 g/dl (31.0-37.0) 01/08/17 13:45 RDW 16.7 % (11.5-14.5) H 01/08/17 13:45 Plt Count 269 10^3/uL (120.0-450.0) 01/08/17 13:45 MPV 9.4 fl (7.0-11.0) 01/08/17 13:45 Gran % 34.2 % (50.0-68.0) L 01/08/17 13:45 Lymph % (Auto) 51.4 % (22.0-35.0) H 01/08/17 13:45 Madison % (Auto) 10.5 % (1.0-6.0) H 01/08/17 13:45 Eos % (Auto) 3.0 % (1.5-5.0) 01/08/17 13:45 Baso % (Auto) 0.9 % (0.0-3.0) 01/08/17 13:45 Gran # 2.53 (1.4-6.5) 01/08/17 13:45 Lymph # 3.8 (1.2-3.4) H 01/08/17 13:45 Madison # 0.8 (0.1-0.6) H 01/08/17 13:45 Eos # 0.2 (0.0-0.7) 01/08/17 13:45 Baso # 0.07 K/mm3 (0.0-2.0) 01/08/17 13:45 PT 12.9 Seconds (9.9-11.8) H 01/08/17 13:45 INR 1.19 (0.93-1.08) H 01/08/17 13:45 APTT 32.4 Seconds (23.7-30.8) H 01/08/17 13:45 D-Dimer, Quantitative 0.22 mg/L FEU (0-0.50) 01/08/17 13:45 Sodium 132 mmol/L (132-148) 01/08/17 13:45 Potassium 4.4 mmol/L (3.6-5.0) 01/08/17 13:45 Chloride 97 mmol/L (98-107) L 01/08/17 13:45 Carbon Dioxide 22 mmol/L (21-33) 01/08/17 13:45 Anion Gap 17 (10-20) 01/08/17 13:45 BUN 22 mg/dL (7-21) H 01/08/17 13:45 Creatinine 0.7 mg/dL (0.5-1.4) 01/08/17 13:45 Est GFR ( Amer) > 60 01/08/17 13:45 Est GFR (Non-Af Amer) > 60 01/08/17 13:45 Random Glucose 86 mg/dL (70-110) 01/08/17 13:45 Hemoglobin A1c 5.5 % (4.2-6.5) 01/08/17 15:45 Calcium 8.9 mg/dL (8.4-10.5) 01/08/17 13:45 Magnesium 1.7 mg/dL (1.7-2.2) 01/08/17 13:45 Total Bilirubin 0.3 mg/dL (0.2-1.3) 01/08/17 13:45 AST 40 U/L (15-39) H 01/08/17 13:45 ALT 29 U/L (7-56) 01/08/17 13:45 Alkaline Phosphatase 78 U/L (38-133) 01/08/17 13:45 Lactate Dehydrogenase 581 U/L (333-699) 01/08/17 13:45 Total Creatine Kinase 258 U/L (35-230) H 01/08/17 13:45 CK-MB (CK-2) 4.3 ng/mL (0.0-3.6) H 01/08/17 13:45 CK-MB (CK-2) % Cancelled 01/08/17 13:45 Troponin I < 0.01 ng/mL 01/09/17 02:05 NT-Pro-B Natriuret Pep 19.3 pg/mL (0-450) 01/08/17 13:45 Total Protein 7.0 g/dL (5.8-8.3) 01/08/17 13:45 Albumin 4.3 g/dL (3.0-4.8) 01/08/17 13:45 Globulin 2.7 gm/dL 01/08/17 13:45 Albumin/Globulin Ratio 1.6 (1.1-1.8) 01/08/17 13:45 Triglycerides 98 mg/dL (35-160) 01/08/17 13:45 Cholesterol 165 mg/dL (130-200) 01/08/17 13:45 LDL Cholesterol Direct 66 mg/dL (0-129) 01/08/17 13:45 HDL Cholesterol 88 mg/dL (29-60) H 01/08/17 13:45 Lipase 235 U/L (23-300) 01/08/17 13:45 TSH 3rd Generation 0.79 mIU/mL (0.46-4.68) 01/08/17 13:45 Urine Color Straw (YELLOW) 01/08/17 14:36 Urine Appearance Clear (CLEAR) 01/08/17 14:36 Urine pH 6.5 (4.7-8.0) 01/08/17 14:36 Ur Specific [place] <= 1.005 (1.005-1.035) 01/08/17 14:36 Urine Protein Negative mg/dL (<30 mg/dL) 01/08/17 14:36 Urine Glucose (UA) Negative mg/dL (NEGATIVE) 01/08/17 14:36 Urine Ketones Negative mg/dL (NEGATIVE) 01/08/17 14:36 Urine Blood Negative (NEGATIVE) 01/08/17 14:36 Urine Nitrate Negative (NEGATIVE) 01/08/17 14:36 Urine Bilirubin Negative (NEGATIVE) 01/08/17 14:36 Urine Urobilinogen 0.2 E.U./dL (<1 E.U./dL) 01/08/17 14:36 Ur Leukocyte Esterase Negative Glory/uL (NEGATIVE) 01/08/17 14:36 Urine Opiates Screen Negative (NEGATIVE) 01/08/17 15:00 Urine Methadone Screen Negative (NEGATIVE) 01/08/17 15:00 Ur Barbiturates Screen Negative (NEGATIVE) 01/08/17 15:00 Valproic Acid 64 ug/mL (50.0-100.0) 01/08/17 13:45 Ur Phencyclidine Scrn Negative (NEGATIVE) 01/08/17 15:00 Ur Amphetamines Screen Negative (NEGATIVE) 01/08/17 15:00 U Benzodiazepines Scrn Negative (NEGATIVE) 01/08/17 15:00 U Oth Cocaine Metabols Negative (NEGATIVE) 01/08/17 15:00 U Cannabinoids Screen Negative (NEGATIVE) 01/08/17 15:00 Alcohol, Quantitative 166 mg/dL (0-10) H 01/08/17 13:45 Attending/Attestation - Attestation I have personally seen and examined this patient.: Yes I have fully participated in the care of the patient.: Yes I have reviewed all pertinent clinical information, including history, physical exam and plan: Yes Notes (Text): 01/09/17 17:11 attending note; Patient seen and examined with resident. Patient is a 51 year old female with PMH of alcoholism, anxiety depression, HTN , COPD,??? ME x2 (2007, 2005), and "mild stroke" (2005), who presents today for complaints of right sided chest pain that began this afternoon. patient has very unreliable history. History of ME and stroke not confirmed. Cardiac enzymes 3 negative. Cardiology evaluation appreciated. case discussed with patient's PMD Dr. Scherer's office. case discussed with Nurse Hollingsworth in detail. Patient was initially seen in the practice in 2013. No records of ME or stent placement. The patient was referred Dr. Mauricio Doherty. no records of cardiac cath or stress test with PMD. We called Dr. Doherty's office and got cath report from December 2014 which showed nonobstructive coronary disease with ejection fraction of 60%. No stent placed. Patient's name was Jade ortega. She changed her name after that to Jade Shabazz. psychiatric evaluation Appreciated. Transferred to psychiatric floor today. Diagnosis; Anxiety Chest pain Alcoholism
[2017-01-09 17:01] VITALS: BP 165/96; PULSE 73; TEMP 98
--- NOTE | 2017-01-09 20:37 | PN ---
DATE: 01/09/2017 ADDENDUM REASON FOR ADDENDUM: The patient admitted to [facility] in 2014 where the patient had a cardiac catheterization. Initially, the patient told that she has never had a cardiac catheterization, also said that she had a stress test done in [place], but no stress test was done at [place], but the patient had a cardiac catheterization in [facility]. The report as follows: Left main is essentially significantly diseased, left LAD has 30% stenosis. Circumflex 20% to 30% stenosis, RCA 30% stenosis, ejection fraction of 60%, dated 12/31/2014. Also is important to mention that the patient admitted with a different name. The patient had a last name with Joshua Hansen, so that was difficulty in finding the medical record, but since the patient had a nonobstructive coronary artery disease, atypical chest pain so far, no evidence of acute ischemia, troponin is negative. It is okay to discharge the patient from cardiology point of view. Discussed with Dr. Akhtar. No further cardiac workup is planned at this time. Thank you Dr. Akhtar for providing the opportunity to taking care of the patient. Noel Lai MD
== END 2017-01-09 17:10 ==
LOC: ED 13:35 → ERH 14:31 → 2RSO 15:58
PROVIDERS: ADMIT Internal Medicine; ATTEND Internal Medicine
DX: R07.89 Other chest pain (principal); E78.00 Pure hypercholesterolemia, unspecified; J44.9 Chronic obstructive pulmonary disease, unspecified; G40.909 Epilepsy, unspecified, not intractable, without status epilepticus; G43.909 Migraine, unspecified, not intractable, without status migrainosus; F10.129 Alcohol abuse with intoxication, unspecified; Y90.6 Blood alcohol level of 120-199 mg/100 ml; Z86.73 Personal history of transient ischemic attack (TIA), and cerebral infarction without residual deficits; Z87.01 Personal history of pneumonia (recurrent); Z90.49 Acquired absence of other specified parts of digestive tract; Z91.410 Personal history of adult physical and sexual abuse; Z79.02 Long term (current) use of antithrombotics/antiplatelets; Z79.82 Long term (current) use of aspirin; Z79.899 Other long term (current) drug therapy; I25.2 Old myocardial infarction; I10 Essential (primary) hypertension; F41.9 Anxiety disorder, unspecified; F31.9 Bipolar disorder, unspecified; I25.10 Atherosclerotic heart disease of native coronary artery without angina pectoris; F60.9 Personality disorder, unspecified; F17.210 Nicotine dependence, cigarettes, uncomplicated; Z82.49 Family history of ischemic heart disease and other diseases of the circulatory system; Z87.81 Personal history of (healed) traumatic fracture; Z88.0 Allergy status to penicillin; Z91.013 Allergy to seafood; Z87.892 Personal history of anaphylaxis; Z80.49 Family history of malignant neoplasm of other genital organs; I07.1 Rheumatic tricuspid insufficiency
CPT/HCPCS: 36415; 71010; 80053; 80061; 80164; 80320; 80324; 80345; 80346; 80349; 80353; 80358; 80361; 81003; 82550; 82553; 83036; 83615; 83690; 83735; 83880; 83992; 84443; 84484; 85025; 85378; 85610; 85730; 93005; 96365; 96366; 96375; 99285; G0378; J3411; J7042

== ENCOUNTER 2017-01-09 17:10 | Inpatient (IN) | payer MEDICAID ==
[2017-01-09 18:45] VITALS: BMI 23.1
--- NOTE | 2017-01-09 19:08 | PCM.BM ---
<Mimi Lozano - Last Filed: 01/09/17 19:05> Treatment Plan Problems - Problems identified on initial assessmt ANXIETY Date Initiated: 01/09/17 Time Initiated: 19:00 Assessment reference: NA Priority: 1 INEFFECTIVE IMPULSE CONTROL Date Initiated: 01/09/17 Time Initiated: 19:00 Assessment reference: NA Status: Active Priority: 2 ALTERED SLEEP PATTERN Date Initiated: 01/09/17 Time Initiated: 19:00 Assessment reference: NA Status: Active Priority: 3 AGITATED BEHAVIOR Date Initiated: 01/09/17 Time Initiated: 19:00 Assessment reference: NA Status: Active Priority: 4 Treatment assets and liabiliti Patient Assests: cooperative, insightful, self-reliant, ADL independent, cognitively intact Patient Liabilities: live alone, poor support system, substance abuse - Milieu Protocol Maintain good personal hygiene: daily Encourage regular showers, daily Remind patient to perform daily oral care, daily Assist patient to perform ADL's Maintain personal safety: every shift Educate patient to report safety concerns to staff, every shift Monitor environment for contraband/sharps Medication safety: Monitor for expected outcome, potential side effects: every shift, Assess barriers to learning: every shift, Assess readiness for medication education: every shift Discharge/Continuing Care - Education Needs Education Needs: Patient Medication, Patient Diagnosis/Disease Process, Patient Coping Skills, Patient Community resources, Patient Activities of Daily Living, Patient Nutrition, Patient Health Practices/Safety, Patient Personal Hygiene/ Grooming, Patient Aftercare Safety Plan - Discharge Discharge Criteria: Tolerates medication w/o severe side effects, Free of agitation, Normal sleep pattern, Ability to care for self, No longer exhibiting s/s of withdrawal, Reduction of target symptoms Discharge to:: Alf <Allen Chapin - Last Filed: 01/10/17 10:39> - Diagnosis (1) Anxiety Status: Acute Interventions: 01/10/17 10:41 * Assess/adjust medications daily and /or as needed * See patient on an individual basis 7x/week to assess symptoms of anxiety * Educate patient regarding benefits, side effects and risks of prescribed medications * (2) Personality disorder, unspecified Status: Acute Interventions: -Close monitoring -Group Therapy -Medication management 01/10/17 10:47 <Irma Dutta - Last Filed: 01/11/17 13:51>
[2017-01-09] MEDS: Divalproex 250 mg DR (BID formulation) PO SCH (19:16)
[2017-01-09] MEDS: Naproxen 550 mg Tab PO SCH (19:16)
--- NOTE | 2017-01-10 00:50 | CP.PCM.PN ---
Subjective - Date & Time of Evaluation Date of Evaluation: 01/10/17 Time of Evaluation: 00:49 - Subjective Subjective: Patient was seen at bedside in presence of a nurse because patient had requested for a sleeping pill. Takes Deseryl at home. She has no other complaints. Denies chest pain, sob, palpitations. ROS:Negative except as mentioned above. Medical record was reviewed. This 51 year old white woman was admitted with Has PMH of COPD, HTN, biplar disorder, NE, stroke, seizures. Objective - Vital Signs/Intake and Output Vital Signs (last 24 hours): VSS. - Medications Medications: Current Medications Aspirin (Ecotrin) 81 mg PO DAILY [facility] Atorvastatin Calcium (Lipitor) 10 mg PO DIN [facility] Last Admin: 01/09/17 19:16 Dose: 10 mg Chlordiazepoxide (Librium) 50 mg PO Q6 PRN; Protocol PRN Reason: Anxiety Last Admin: 01/09/17 19:18 Dose: 50 mg Clopidogrel Bisulfate (Plavix) 75 mg PO DAILY [facility] Divalproex Sodium (Depakote Dr (*Bid*)) 500 mg PO BID [facility] PRN Reason: Protocol Last Admin: 01/09/17 19:16 Dose: 500 mg Folic Acid (Folic Acid) 1 mg PO DAILY [facility] Gabapentin (Neurontin) 900 mg PO BID [facility] PRN Reason: Protocol Last Admin: 01/09/17 19:15 Dose: 900 mg Lisinopril (Zestril) 10 mg PO DAILY [facility] Multivitamins (Thera Tab) 1 tab PO 0800 [facility] Naproxen (Anaprox Ds) 550 mg PO BID [facility] Last Admin: 01/09/17 19:16 Dose: 550 mg Nicotine (Nicoderm Cq) 1 patch TD DAILY [facility] Thiamine HCl (Vitamin B1 Tab) 100 mg PO DAILY [facility] - Constitutional Appears: Well, No Acute Distress - Head Exam Head Exam: ATRAUMATIC, NORMAL INSPECTION, NORMOCEPHALIC - Eye Exam Eye Exam: Normal appearance - ENT Exam ENT Exam: Normal External Ear Exam - Neck Exam Neck Exam: Normal Inspection - Respiratory Exam Respiratory Exam: NORMAL BREATHING PATTERN - Cardiovascular Exam Cardiovascular Exam: absent: JVD - GI/Abdominal Exam GI & Abdominal Exam: absent: Distended - Rectal Exam Rectal Exam: Deferred - Extremities Exam Extremities Exam: Normal Inspection - Back Exam Back Exam: NORMAL INSPECTION - Neurological Exam Neurological Exam: Alert, Oriented x3 - Psychiatric Exam Psychiatric exam: Normal Affect, Normal Mood - Skin Skin Exam: Normal Color Assessment and Plan - Assessment and Plan (Free Text) Assessment: Adjustment Insomnia. COPD. Hx NE. Bipolar disorder. HTN. Alcohol abuse. Plan: Benadryl 25 mg PO stat. Continue present management.
[2017-01-10 07:06] VITALS: BP 140/83; PULSE 62; RESP 18; TEMP 97.5
[2017-01-10] MEDS ORDERED: Multivitamin Therapeutic Tab PO SCH (08:00)
[2017-01-10] MEDS: Divalproex 250 mg DR (BID formulation) PO SCH (08:11)
[2017-01-10] MEDS: Naproxen 550 mg Tab PO SCH (08:12)
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
[2017-01-10 09:24] LABS: HDL CHOLESTEROL 75 mg/dL (29-60); LDL CHOLESTEROL 53 mg/dL (0-129)
[2017-01-10 09:27] LABS: FREE T4 0.64 ng/dL (0.78-2.19)
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
--- NOTE | 2017-01-10 10:48 | PCM.BM ---
Treatment Plan Problems - Problems identified on initial assessmt ANXIETY Date Initiated: 01/09/17 Time Initiated: 19:00 Assessment reference: NA Priority: 1 INEFFECTIVE IMPULSE CONTROL Date Initiated: 01/09/17 Time Initiated: 19:00 Assessment reference: NA Status: Active Priority: 2 ALTERED SLEEP PATTERN Date Initiated: 01/09/17 Time Initiated: 19:00 Assessment reference: NA Status: Active Priority: 3 AGITATED BEHAVIOR Date Initiated: 01/09/17 Time Initiated: 19:00 Assessment reference: NA Status: Active Priority: 4 Treatment assets and liabiliti Patient Assests: cooperative, insightful, self-reliant, ADL independent, cognitively intact Patient Liabilities: live alone, poor support system, substance abuse - Milieu Protocol Maintain good personal hygiene: daily Encourage regular showers, daily Remind patient to perform daily oral care, daily Assist patient to perform ADL's Maintain personal safety: every shift Educate patient to report safety concerns to staff, every shift Monitor environment for contraband/sharps Medication safety: Monitor for expected outcome, potential side effects: every shift, Assess barriers to learning: every shift, Assess readiness for medication education: every shift Family Contact Family involvement: Famliy/SO not involved Discharge/Continuing Care - Education Needs Education Needs: Patient Medication, Patient Diagnosis/Disease Process, Patient Coping Skills, Patient Community resources, Patient Activities of Daily Living, Patient Nutrition, Patient Health Practices/Safety, Patient Personal Hygiene/ Grooming, Patient Aftercare Safety Plan - Discharge Discharge Criteria: Tolerates medication w/o severe side effects, Free of agitation, Normal sleep pattern, Ability to care for self, No longer exhibiting s/s of withdrawal, Reduction of target symptoms Discharge to:: Halfway
== END 2017-01-10 12:20 | disposition home or self-care (01) | DRG 426 ==
LOC: PSYC 17:10
PROVIDERS: ADMIT Psychiatry & Neurology Addiction Medicine; ATTEND Psychiatry & Neurology Addiction Medicine
DX: F32.9 Major depressive disorder, single episode, unspecified (principal); R56.9 Unspecified convulsions; F14.90 Cocaine use, unspecified, uncomplicated; J44.9 Chronic obstructive pulmonary disease, unspecified; F41.1 Generalized anxiety disorder; F10.20 Alcohol dependence, uncomplicated; F31.9 Bipolar disorder, unspecified; I10 Essential (primary) hypertension; F51.02 Adjustment insomnia; F60.9 Personality disorder, unspecified; I25.2 Old myocardial infarction; Z59.0 Homelessness; Z79.02 Long term (current) use of antithrombotics/antiplatelets; Z79.899 Other long term (current) drug therapy; Z86.73 Personal history of transient ischemic attack (TIA), and cerebral infarction without residual deficits; Z87.01 Personal history of pneumonia (recurrent); F17.210 Nicotine dependence, cigarettes, uncomplicated; Z90.49 Acquired absence of other specified parts of digestive tract; Z91.410 Personal history of adult physical and sexual abuse; R07.9 Chest pain, unspecified; Z98.51 Tubal ligation status; Z87.892 Personal history of anaphylaxis; Z88.0 Allergy status to penicillin; Z91.013 Allergy to seafood; Z82.49 Family history of ischemic heart disease and other diseases of the circulatory system; Z80.49 Family history of malignant neoplasm of other genital organs; Z84.89 Family history of other specified conditions; G43.909 Migraine, unspecified, not intractable, without status migrainosus; Z87.81 Personal history of (healed) traumatic fracture

== ENCOUNTER 2017-01-10 18:31 | Inpatient (IN) | payer MEDICAID ==
[2017-01-10 18:51] VITALS: RESP 18
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
[2017-01-10 19:57] LABS: ALB/GLOB RATIO 1.5 (1.1-1.8); ALT/SGPT 30 U/L (7-56); AST/SGOT 45 U/L (15-39); BLOOD UREA NITROGEN 13 mg/dL (7-21); CALCIUM 8.5 mg/dL (8.4-10.5); GFR AFRICAN-AMERICAN > 60; GFR NON-AFRICAN AMERICAN > 60
[2017-01-10 19:58] LABS: SALICYLATE < 1 mg/dL (2.0-20.0)
[2017-01-10 20:00] LABS: ACETAMINOPHEN < 10.0 ug/ml (10.0-20.0)
[2017-01-10 20:11] LABS: RBC 3.77 10^6/uL (3.5-6.1); WHITE BLOOD COUNT 4.9 10^3/ul (4.5-11.0)
[2017-01-10 20:12] LABS: BASO # 0.03 K/mm3 (0.0-2.0); BASO % 0.6 % (0.0-3.0); EOS # 0.1 (0.0-0.7); EOS % 1.2 % (1.5-5.0); GRAN # 2.32 (1.4-6.5); GRAN % 47.3 % (50.0-68.0); HEMOGLOBIN 10.8 g/dL (12.0-16.0); LYMPH # 2.2 (1.2-3.4); LYMPH % 44.4 % (22.0-35.0); MEAN CELL VOLUME 84.9 fl (80.0-105.0); MEAN CORPUSCULAR HEMOGLOBIN 28.6 pg (25.0-35.0); MEAN CORPUSCULAR HGB CONC 33.8 g/dl (31.0-37.0); MEAN PLATELET VOLUME 9.4 fl (7.0-11.0); MONO # 0.3 (0.1-0.6); MONO % 6.5 % (1.0-6.0); PLATELET COUNT 227 10^3/uL (120.0-450.0); RED CELL DISTRIBUTION WIDTH 16.5 % (11.5-14.5)
[2017-01-10 21:06] LABS: URINE BILIRUBIN NEGATIVE (NEGATIVE); URINE BLOOD NEGATIVE (NEGATIVE); URINE GLUCOSE (UA) NEGATIVE (NEGATIVE); URINE LEUKOCYTE ESTERASE TRACE Leu/uL (NEGATIVE); URINE NITRATE NEGATIVE (NEGATIVE); URINE PROTEIN NEGATIVE mg/dL (<30 mg/dL); URINE UROBILINOGEN 0.2 E.U./dL (<1 E.U./dL)
[2017-01-10 21:08] LABS: BARBITURATES, UR NEGATIVE (NEGATIVE); BENZODIAZEPINES, UR POSITIVE (NEGATIVE); OPIATES, UR NEGATIVE (NEGATIVE); PHENCYCLIDINE, UR NEGATIVE (NEGATIVE)
[2017-01-10 21:15] LABS: URINE APPEARANCE CLEAR (CLEAR); URINE COLOR YELLOW (YELLOW)
[2017-01-10 21:40] LABS: URINE RBC 0 - 2 /hpf (0-2); URINE WBC 0 - 2 /hpf (0-6)
[2017-01-10 21:41] LABS: URINE BACTERIA MOD (NEG)
[2017-01-10] MEDS ORDERED: Sodium Chloride 0.9% 2,000 ML IV STA (23:17)
[2017-01-11 03:17] VITALS: BP 145/83; PULSE 56; TEMP 97.6; O2SAT 100
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
--- NOTE | 2017-01-11 09:38 | CARD ---
APPROVED REPORT EKG Measurement Heart [id number] <Conclusion> Normal sinus rhythm Normal ECG
[2017-01-11] MEDS ORDERED: Magnesium Hydroxide Susp 30 ml UD PO PRN (11:06)
[2017-01-11] MEDS ORDERED: Alum-Mag Hydrox-Simethicone Susp (30 mL) PO PRN (11:06)
--- NOTE | 2017-01-11 11:42 | PCM.BM ---
<Darian Alba - Last Filed: 01/11/17 11:39> Treatment Plan Problems - Problems identified on initial assessmt anxiety Date Initiated: 01/11/17 Assessment reference: NA Status: Active Priority: 1 insomnia Date Initiated: 01/11/17 Assessment reference: NA Status: Active Priority: 2 Alcohol use Date Initiated: 01/11/17 Assessment reference: NA Status: Active Priority: 3 <Roseann Mayers - Last Filed: 01/11/17 11:49> Treatment assets and liabiliti Patient Assests: adapts well, ADL independent, negotiates basic needs Patient Liabilities: financial problems, poor support system, substance abuse - Milieu Protocol Maintain good personal hygiene: daily Encourage regular showers, daily Remind patient to perform daily oral care, daily Assist patient to perform ADL's Conduct patient checks and document Observation sheet: Q15 minutes Maintain personal safety: every shift Educate patient to report safety concerns to staff, every shift Monitor environment for contraband/sharps Medication safety: Monitor for expected outcome, potential side effects: every shift, Assess barriers to learning: every shift, Assess readiness for medication education: every shift Family Contact Family involvement: No known Family/SO Discharge/Continuing Care - Education Needs Education Needs: Patient Medication, Patient Diagnosis/Disease Process, Patient Coping Skills, Patient Community resources, Patient Personal Hygiene/Grooming - Discharge Discharge Criteria: Free of Suicidal thoughts, No longer exhibiting s/s of withdrawal <Dior Ortega - Last Filed: 01/11/17 14:35>
== END 2017-01-11 14:46 | disposition home or self-care (01) | DRG 750 ==
LOC: ED 18:31 → EROBSV 19:09 → OBSVTOIN 01-11 02:20 → ERH 01-11 02:28 → PSYC 01-11 05:51
PROVIDERS: ADMIT Psychiatry & Neurology Psychiatry; ATTEND Psychiatry & Neurology Addiction Medicine
DX: F10.129 Alcohol abuse with intoxication, unspecified (principal); J44.9 Chronic obstructive pulmonary disease, unspecified; F10.14 Alcohol abuse with alcohol-induced mood disorder; R56.9 Unspecified convulsions; F31.9 Bipolar disorder, unspecified; Z87.01 Personal history of pneumonia (recurrent); Z90.49 Acquired absence of other specified parts of digestive tract; I49.9 Cardiac arrhythmia, unspecified; G43.909 Migraine, unspecified, not intractable, without status migrainosus; Z87.81 Personal history of (healed) traumatic fracture; F41.9 Anxiety disorder, unspecified; F32.89 Other specified depressive episodes; Z88.0 Allergy status to penicillin; Z91.013 Allergy to seafood; R40.2412 Glasgow coma scale score 13-15, at arrival to emergency department; G47.00 Insomnia, unspecified; Y90.6 Blood alcohol level of 120-199 mg/100 ml

== ENCOUNTER 2017-01-12 17:10 | Emergency (ER) | payer MEDICAID ==
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
[2017-01-12 17:52] LABS: URINE BILIRUBIN NEGATIVE (NEGATIVE); URINE BLOOD NEGATIVE (NEGATIVE); URINE GLUCOSE (UA) NEGATIVE (NEGATIVE); URINE KETONE NEGATIVE (NEGATIVE); URINE LEUKOCYTE ESTERASE NEGATIVE Leu/uL (NEGATIVE); URINE PROTEIN NEGATIVE mg/dL (<30 mg/dL); URINE UROBILINOGEN 0.2 E.U./dL (<1 E.U./dL)
[2017-01-12 17:55] LABS: URINE APPEARANCE CLEAR (CLEAR); URINE COLOR COLORLESS (YELLOW)
--- NOTE | 2017-01-12 18:04 | RAD ---
HISTORY: chest pain COMPARISON: 01/10/2017 FINDINGS: LUNGS: No active pulmonary disease. PLEURA: No significant pleural effusion identified, no pneumothorax apparent. CARDIOVASCULAR: Normal. OSSEOUS STRUCTURES: No significant abnormalities. VISUALIZED UPPER ABDOMEN: Normal. OTHER FINDINGS: None. IMPRESSION: No active disease.
[2017-01-12 18:34] LABS: BASO # 0.04 K/mm3 (0.0-2.0); BASO % 0.7 % (0.0-3.0); EOS # 0.1 (0.0-0.7); EOS % 1.6 % (1.5-5.0); GRAN # 2.1 (1.4-6.5); GRAN % 36.7 % (50.0-68.0); HEMATOCRIT 28.6 % (36.0-48.0); LYMPH # 2.9 (1.2-3.4); LYMPH % 49.7 % (22.0-35.0); MEAN CELL VOLUME 85.1 fl (80.0-105.0); MEAN CORPUSCULAR HEMOGLOBIN 28.3 pg (25.0-35.0); MEAN CORPUSCULAR HGB CONC 33.2 g/dl (31.0-37.0); MEAN PLATELET VOLUME 9.8 fl (7.0-11.0); MONO # 0.7 (0.1-0.6); MONO % 11.3 % (1.0-6.0); RED CELL DISTRIBUTION WIDTH 16.5 % (11.5-14.5); WHITE BLOOD COUNT 5.7 10^3/ul (4.5-11.0)
[2017-01-12 18:46] LABS: ALB/GLOB RATIO 1.5 (1.1-1.8); ALKALINE PHOSPHATASE 71 U/L (38-133); ALT/SGPT 27 U/L (7-56); AST/SGOT 35 U/L (15-39); BLOOD UREA NITROGEN 15 mg/dL (7-21); CALCIUM 8.4 mg/dL (8.4-10.5); CARBON DIOXIDE 21 mmol/L (21-33); CHLORIDE 99 mmol/L (98-107); GFR AFRICAN-AMERICAN > 60; GLUCOSE,RANDOM 89 mg/dL (70-110); POTASSIUM 3.5 mmol/L (3.6-5.0); SODIUM 133 mmol/L (132-148)
[2017-01-12 18:47] LABS: BILIRUBIN,TOTAL < 0.1 mg/dL (0.2-1.3)
[2017-01-12 19:26] LABS: TROPONIN I < 0.01 ng/mL
[2017-01-12] MEDS ORDERED: Potassium Chloride 20 mEq ER Tab PO STA (20:04)
--- NOTE | 2017-01-12 23:23 | ED PDOC ---
Physical Exam Vital Signs Reviewed: Yes Vital Signs Temp 01/12/17 18:25 98 F Temperature: Afebrile Blood Pressure: Normal Pulse: Regular Respiratory Rate: Normal Appearance: Positive for: Well-Appearing, Non-Toxic, Comfortable Pain Distress: None Mental Status: Positive for: Alert and Oriented X 3 Medical Decision Making ED Course and Treatment: 01/12/17 23:00 Case endorsed to me by Dr. Bolton, pending PES and disposition. 01/12/17 23:15 Pt seen and evaluated by JUNIOR Gupta, who discussed case with psychiatrist title i instructional assistant. Pt stable for d/c with outpatient follow-up. - Lab Interpretations Lab Results: 01/12/17 18:25 01/12/17 18:25 Lab Results 01/12/17 18:25: Alcohol, Quantitative 164 H 01/12/17 18:25: Salicylates < 1 L, Acetaminophen < 10.0 L 01/12/17 18:25: Sodium 133, Potassium 3.5 L, Chloride 99, Carbon Dioxide 21, Anion Gap 17, BUN 15, Creatinine 0.7, Est GFR ( Amer) > 60, Est GFR (Non- Af Amer) > 60, Random Glucose 89, Calcium 8.4, Total Bilirubin < 0.1 L, AST 35, ALT 27, Alkaline Phosphatase 71, Lactate Dehydrogenase 566, Total Creatine Kinase 198, Troponin I < 0.01, Total Protein 6.0, Albumin 3.6, Globulin 2.4, Albumin/Globulin Ratio 1.5 01/12/17 18:25: WBC 5.7, RBC 3.36 L, Hgb 9.5 L, Hct 28.6 L, MCV 85.1, MCH 28.3, MCHC 33.2, RDW 16.5 H, Plt Count 233, MPV 9.8, Gran % 36.7 L, Lymph % (Auto) 49.7 H, [place] % (Auto) 11.3 H, Eos % (Auto) 1.6, Baso % (Auto) 0.7, Gran # 2.10, Lymph # 2.9, [place] # 0.7 H, Eos # 0.1, Baso # 0.04 01/12/17 17:45: Urine Opiates Screen Negative, Urine Methadone Screen Negative, Ur Barbiturates Screen Negative, Ur Phencyclidine Scrn Negative, Ur Amphetamines Screen Negative, U Benzodiazepines Scrn Positive H, U Oth Cocaine Metabols Negative, U Cannabinoids Screen Negative 01/12/17 17:45: Urine Color Colorless, Urine Appearance Clear, Urine pH 6.0, Ur Specific [place] <= 1.005, Urine Protein Negative, Urine Glucose (UA) Negative, Urine Ketones Negative, Urine Blood Negative, Urine Nitrate Negative, Urine Bilirubin Negative, Urine Urobilinogen 0.2, Ur Leukocyte Esterase Negative - RAD Interpretation Radiology Orders: 01/12/17 17:26 CHEST PORTABLE [RAD] Stat - Medication Orders Current Medication Orders: Discontinued Medications Potassium Chloride (K-Dur 20 Meq Er Tab) 20 meq PO STAT STA Stop: 01/12/17 20:05 Disposition/Present on Arrival - Present on Arrival Any Indicators Present on Arrival: No History of DVT/PE: No History of Uncontrolled Diabetes: No Urinary Catheter: No History of Decub. Ulcer: No History Surgical Site Infection Following: None - Disposition Have Diagnosis and Disposition been Completed?: Yes Diagnosis: Alcohol intoxication, Anxiety Disposition: HOME/ ROUTINE Disposition Time: 23:15 Condition: GOOD Referrals: Roman Scherer Jr., MD [Primary Care Provider] - Follow up with primary Forms: [employer] ([place]an)
[2017-01-13 00:17] VITALS: BP 126/74; PULSE 78; RESP 18; TEMP 98.1; O2SAT 99
--- NOTE | 2017-01-13 10:58 | CARD ---
APPROVED REPORT EKG Measurement Heart [id number] <Conclusion> Normal sinus rhythm Normal ECG
== END 2017-01-12 23:54 | disposition home or self-care (01) ==
LOC: ED 17:10
DX: F41.9 Anxiety disorder, unspecified (principal); F10.129 Alcohol abuse with intoxication, unspecified; Y90.6 Blood alcohol level of 120-199 mg/100 ml

== ENCOUNTER 2017-01-27 19:32 | Observation (INO) | payer MEDICAID ==
[2017-01-27 21:00] LABS: URINE BILIRUBIN NEGATIVE (NEGATIVE); URINE BLOOD NEGATIVE (NEGATIVE); URINE GLUCOSE (UA) NEGATIVE (NEGATIVE); URINE KETONE NEGATIVE (NEGATIVE); URINE LEUKOCYTE ESTERASE TRACE Leu/uL (NEGATIVE); URINE PROTEIN NEGATIVE mg/dL (<30 mg/dL); URINE UROBILINOGEN 0.2 E.U./dL (<1 E.U./dL)
[2017-01-27 21:05] LABS: URINE APPEARANCE CLEAR (CLEAR); URINE COLOR YELLOW (YELLOW)
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
[2017-01-27 21:08] LABS: URINE RBC 0 - 2 /hpf (0-2)
[2017-01-27 21:10] LABS: BASO # 0.02 K/mm3 (0.0-2.0); BASO % 0.2 % (0.0-3.0); EOS # 0.1 (0.0-0.7); EOS % 0.7 % (1.5-5.0); GRAN # 5.91 (1.4-6.5); GRAN % 61.1 % (50.0-68.0); HEMATOCRIT 30.4 % (36.0-48.0); LYMPH # 2.6 (1.2-3.4); LYMPH % 27.2 % (22.0-35.0); MEAN CELL VOLUME 82.8 fl (80.0-105.0); MEAN CORPUSCULAR HEMOGLOBIN 28.6 pg (25.0-35.0); MEAN CORPUSCULAR HGB CONC 34.5 g/dl (31.0-37.0); MEAN PLATELET VOLUME 9.9 fl (7.0-11.0); MONO # 1.1 (0.1-0.6); MONO % 10.8 % (1.0-6.0); RED CELL DISTRIBUTION WIDTH 16.3 % (11.5-14.5); WHITE BLOOD COUNT 9.7 10^3/ul (4.5-11.0)
[2017-01-27 21:16] LABS: ALB/GLOB RATIO 1.5 (1.1-1.8); ALKALINE PHOSPHATASE 57 U/L (38-126); ALT/SGPT 40 U/L (7-56); AST/SGOT 90 U/L (14-36); BILIRUBIN,TOTAL 0.7 mg/dL (0.2-1.3); BLOOD UREA NITROGEN 9 mg/dL (7-21); CALCIUM 8.4 mg/dL (8.4-10.5); CARBON DIOXIDE 22 mmol/L (21-33); CHLORIDE 86 mmol/L (95-110); GFR AFRICAN-AMERICAN > 60; GLUCOSE,RANDOM 78 mg/dL (70-110); POTASSIUM 4.5 mmol/L (3.6-5.0); SODIUM 121 mmol/L (132-148); TOTAL PROTEIN 6.7 g/dL (5.8-8.3)
[2017-01-27] MEDS ORDERED: Sodium Chloride 0.9% 1,000 ML IV SCH (21:30)
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
[2017-01-28] MEDS ORDERED: Sodium Chloride 0.9% 1,000 ML IV SCH (00:15)
[2017-01-28 00:47] LABS: THYROID STIMULATING HORMONE 0.33 mIU/mL (0.46-4.68)
[2017-01-28 02:11] VITALS: BMI 20.9
[2017-01-28 02:23] LABS: BLOOD UREA NITROGEN 6 mg/dL (7-21); CALCIUM 8.2 mg/dL (8.4-10.5); CARBON DIOXIDE 21 mmol/L (21-33); CHLORIDE 92 mmol/L (98-107); GFR AFRICAN-AMERICAN > 60; GLUCOSE,RANDOM 92 mg/dL (70-110); POTASSIUM 3.4 mmol/L (3.6-5.0); SODIUM 126 mmol/L (132-148)
[2017-01-28] MEDS ORDERED: Potassium Chloride 20 mEq ER Tab PO ONE (02:46)
[2017-01-28 07:08] LABS: ALKALINE PHOSPHATASE 62 U/L (38-126); ALT/SGPT 39 U/L (7-56); AST/SGOT 74 U/L (14-36); BILIRUBIN,TOTAL 0.4 mg/dL (0.2-1.3); BLOOD UREA NITROGEN 10 mg/dL (7-21); CALCIUM 8.4 mg/dL (8.4-10.5); CARBON DIOXIDE 25 mmol/L (21-33); CHLORIDE 92 mmol/L (95-110); GFR AFRICAN-AMERICAN > 60; GLUCOSE,RANDOM 97 mg/dL (70-110); POTASSIUM 4.2 mmol/L (3.6-5.0); SODIUM 124 mmol/L (132-148)
[2017-01-28 07:12] LABS: BASO # 0.02 K/mm3 (0.0-2.0); BASO % 0.4 % (0.0-3.0); EOS # 0.3 (0.0-0.7); EOS % 6.5 % (1.5-5.0); GRAN # 2.43 (1.4-6.5); GRAN % 49.8 % (50.0-68.0); HEMATOCRIT 29.4 % (36.0-48.0); LYMPH # 1.4 (1.2-3.4); MEAN CELL VOLUME 83.8 fl (80.0-105.0); MEAN CORPUSCULAR HEMOGLOBIN 27.9 pg (25.0-35.0); MEAN CORPUSCULAR HGB CONC 33.3 g/dl (31.0-37.0); MEAN PLATELET VOLUME 9.9 fl (7.0-11.0); MONO # 0.8 (0.1-0.6); MONO % 15.3 % (1.0-6.0); WHITE BLOOD COUNT 4.9 10^3/ul (4.5-11.0)
[2017-01-28 07:14] LABS: IRON 55 ug/dL (45-180)
[2017-01-28 07:16] LABS: ALB/GLOB RATIO 1.3 (1.1-1.8); TOTAL PROTEIN 5.8 g/dL (5.8-8.3)
[2017-01-28] MEDS: Multivitamin Vitamin B Complex (Nephro-Vite) Tab PO SCH (07:41)
--- NOTE | 2017-01-28 09:04 | RAD ---
HISTORY: cp COMPARISON: Chest x-ray performed 01/12/17 TECHNIQUE: Chest, one view. FINDINGS: LUNGS: Minimal retrocardiac atelectasis. 10 mm density at the left lung base possibly related to confluence of shadows. This was not present on prior study performed 01/12/17. Please note that chest x-ray has limited sensitivity for the detection of pulmonary masses. PLEURA: No significant pleural effusion identified. No definite pneumothorax . CARDIOVASCULAR: Heart size appears within normal limits. OSSEOUS STRUCTURES: Mild degenerative changes. VISUALIZED UPPER ABDOMEN: Unremarkable. OTHER FINDINGS: None. IMPRESSION: 10 mm density at the left lung base possibly related to confluence of shadows. This was not present on prior study performed 01/12/17. Recommend attention on follow-up. Minimal retrocardiac atelectasis.
[2017-01-28] MEDS: Divalproex 500 mg DR(BID formulation) PO SCH ×2 (10:06→17:39)
[2017-01-28] MEDS: Sodium Chloride 0.9% 1,000 ML IV SCH ×2 (10:09→17:40)
[2017-01-28 12:29] LABS: FOLATE 9.4 ng/mL
[2017-01-28 14:21] LABS: FREE T4 0.93 ng/dL (0.78-2.19)
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
--- NOTE | 2017-01-28 16:22 | CARD ---
APPROVED REPORT EKG Measurement Heart [id number] CT [id number] <Conclusion> Normal sinus rhythm Normal ECG
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
[2017-01-29] MEDS: Sodium Chloride 0.9% 1,000 ML IV SCH ×2 (05:03→17:08)
[2017-01-29 07:07] LABS: BASO # 0.03 K/mm3 (0.0-2.0); BASO % 0.8 % (0.0-3.0); EOS # 0.3 (0.0-0.7); EOS % 8.1 % (1.5-5.0); GRAN # 1.25 (1.4-6.5); GRAN % 32.4 % (50.0-68.0); HEMATOCRIT 29.1 % (36.0-48.0); LYMPH # 1.7 (1.2-3.4); LYMPH % 44.2 % (22.0-35.0); MEAN CELL VOLUME 84.3 fl (80.0-105.0); MEAN CORPUSCULAR HEMOGLOBIN 28.4 pg (25.0-35.0); MEAN CORPUSCULAR HGB CONC 33.7 g/dl (31.0-37.0); MEAN PLATELET VOLUME 10.2 fl (7.0-11.0); MONO # 0.6 (0.1-0.6); MONO % 14.5 % (1.0-6.0); RED CELL DISTRIBUTION WIDTH 17.3 % (11.5-14.5); WHITE BLOOD COUNT 3.9 10^3/ul (4.5-11.0)
[2017-01-29 07:40] LABS: ALB/GLOB RATIO 1.4 (1.1-1.8); ALKALINE PHOSPHATASE 53 U/L (38-126); ALT/SGPT 37 U/L (7-56); AST/SGOT 72 U/L (14-36); BILIRUBIN,TOTAL 0.3 mg/dL (0.2-1.3); BLOOD UREA NITROGEN 8 mg/dL (7-21); CALCIUM 8.3 mg/dL (8.4-10.5); CARBON DIOXIDE 24 mmol/L (21-33); CHLORIDE 99 mmol/L (98-107); GFR AFRICAN-AMERICAN > 60; GLUCOSE,RANDOM 83 mg/dL (70-110); POTASSIUM 4.1 mmol/L (3.6-5.0); SODIUM 129 mmol/L (132-148); TOTAL PROTEIN 5.5 g/dL (5.8-8.3)
[2017-01-29] MEDS: Multivitamin Vitamin B Complex (Nephro-Vite) Tab PO SCH (09:19)
[2017-01-29] MEDS: Divalproex 500 mg DR(BID formulation) PO SCH ×2 (09:19→18:07)
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
[2017-01-29] MEDS: Hydrocortisone 0.5% Cream(30 gm) TOP SCH (18:07)
--- NOTE | 2017-01-29 18:46 | US ---
Indication: urinary frequency/urgency Technique: Bladder only/residual urine ultrasound Comparison: None available Findings: Prevoid urinary bladder measures approximately 4.7 x 4.4 x 4.9 cm, calculated volume 70.6 mL. Postvoid urinary bladder measures approximately 3.5 x 3.0 x 4.4 cm, calculated volume 23.4 mL. Bilateral ureteral jets were not identified. Impression: Prevoid urinary bladder volume 70.6 mL. Postvoid urinary bladder volume 23.4 mL. Bilateral ureteral jets were not identified.
[2017-01-30] MEDS: Sodium Chloride 0.9% 1,000 ML IV SCH (05:39)
[2017-01-30 06:15] LABS: BASO # 0.04 K/mm3 (0.0-2.0); BASO % 1.1 % (0.0-3.0); EOS # 0.3 (0.0-0.7); EOS % 8.6 % (1.5-5.0); GRAN # 1.1 (1.4-6.5); GRAN % 29.8 % (50.0-68.0); LYMPH # 1.8 (1.2-3.4); LYMPH % 48.1 % (22.0-35.0); MEAN CELL VOLUME 85.9 fl (80.0-105.0); MEAN CORPUSCULAR HEMOGLOBIN 28.8 pg (25.0-35.0); MEAN CORPUSCULAR HGB CONC 33.5 g/dl (31.0-37.0); MEAN PLATELET VOLUME 9.9 fl (7.0-11.0); MONO # 0.5 (0.1-0.6); MONO % 12.4 % (1.0-6.0); RED CELL DISTRIBUTION WIDTH 17.4 % (11.5-14.5); WHITE BLOOD COUNT 3.7 10^3/ul (4.5-11.0)
[2017-01-30 06:36] LABS: ALB/GLOB RATIO 1.3 (1.1-1.8); ALKALINE PHOSPHATASE 50 U/L (38-126); ALT/SGPT 32 U/L (7-56); AST/SGOT 58 U/L (14-36); BILIRUBIN,TOTAL 0.5 mg/dL (0.2-1.3); BLOOD UREA NITROGEN 6 mg/dL (7-21); CALCIUM 8.9 mg/dL (8.4-10.5); CARBON DIOXIDE 25 mmol/L (21-33); CHLORIDE 100 mmol/L (95-110); GFR AFRICAN-AMERICAN > 60; GLUCOSE,RANDOM 81 mg/dL (70-110); POTASSIUM 3.9 mmol/L (3.6-5.0); SODIUM 131 mmol/L (132-148); TOTAL PROTEIN 5.9 g/dL (5.8-8.3)
[2017-01-30 07:55] VITALS: BP 141/79; PULSE 54; RESP 18; TEMP 98; O2SAT 95
[2017-01-30] MEDS: Multivitamin Vitamin B Complex (Nephro-Vite) Tab PO SCH (09:40)
[2017-01-30] MEDS: Divalproex 500 mg DR(BID formulation) PO SCH (09:41)
[2017-01-30] MEDS: Hydrocortisone 0.5% Cream(30 gm) TOP SCH (10:08)
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
== END 2017-01-30 14:19 | disposition home or self-care (01) ==
LOC: ED 19:32 → ERH 23:10 → 2RSO 01-28 01:03 → INTOOBSV 01-29 17:37 → OBSVTOIN 01-29 17:37 → 3RNO 01-29 17:51
PROVIDERS: ADMIT Internal Medicine; ATTEND Internal Medicine
DX: M54.2 Cervicalgia (principal); Y04.8XXA Assault by other bodily force, initial encounter; Y07.03 Male partner, perpetrator of maltreatment and neglect; R40.2412 Glasgow coma scale score 13-15, at arrival to emergency department; Z59.0 Homelessness; F10.229 Alcohol dependence with intoxication, unspecified; F14.10 Cocaine abuse, uncomplicated; F17.210 Nicotine dependence, cigarettes, uncomplicated; D64.9 Anemia, unspecified; E87.1 Hypo-osmolality and hyponatremia; R45.851 Suicidal ideations; Y90.7 Blood alcohol level of 200-239 mg/100 ml; F31.9 Bipolar disorder, unspecified; F60.2 Antisocial personality disorder; G62.9 Polyneuropathy, unspecified; I10 Essential (primary) hypertension; I25.10 Atherosclerotic heart disease of native coronary artery without angina pectoris; I25.2 Old myocardial infarction; J44.9 Chronic obstructive pulmonary disease, unspecified; Z79.899 Other long term (current) drug therapy; Z86.73 Personal history of transient ischemic attack (TIA), and cerebral infarction without residual deficits; Z80.3 Family history of malignant neoplasm of breast; Z87.01 Personal history of pneumonia (recurrent); Z87.410 Personal history of cervical dysplasia; Z90.49 Acquired absence of other specified parts of digestive tract; Z87.81 Personal history of (healed) traumatic fracture; F41.9 Anxiety disorder, unspecified; Z88.0 Allergy status to penicillin; Z91.013 Allergy to seafood; Z80.49 Family history of malignant neoplasm of other genital organs; G43.909 Migraine, unspecified, not intractable, without status migrainosus; R56.9 Unspecified convulsions; M77.30 Calcaneal spur, unspecified foot; S00.81XA Abrasion of other part of head, initial encounter; F19.94 Other psychoactive substance use, unspecified with psychoactive substance-induced mood disorder; R35.0 Frequency of micturition; R07.9 Chest pain, unspecified; Z98.51 Tubal ligation status
CPT/HCPCS: 36415; 70450; 71010; 72125; 76857; 80053; 80320; 80324; 80329; 80345; 80346; 80349; 80353; 80358; 80361; 81001; 82607; 82728; 82746; 83540; 83550; 83930; 83935; 83992; 84300; 84439; 84443; 84484; 84550; 84703; 85025; 87086; 93005; 96372; 96374; 96375; 96376; 97116; 97162; 97530; 99285; C9113; G0378; G8978; G8979; J1644; J2060; J2405; J7040

== ENCOUNTER 2017-02-02 15:41 | Inpatient (IN) | payer MEDICAID ==
[2017-02-02 15:42] VITALS: BMI 20.9
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
[2017-02-02 17:29] LABS: BASO # 0.07 K/mm3 (0.0-2.0); BASO % 1.1 % (0.0-3.0); EOS # 0.2 (0.0-0.7); EOS % 2.9 % (1.5-5.0); GRAN # 3.29 (1.4-6.5); GRAN % 49.7 % (50.0-68.0); HEMATOCRIT 33.4 % (36.0-48.0); LYMPH # 2.5 (1.2-3.4); LYMPH % 38.1 % (22.0-35.0); MEAN CELL VOLUME 86.3 fl (80.0-105.0); MEAN CORPUSCULAR HEMOGLOBIN 28.4 pg (25.0-35.0); MEAN CORPUSCULAR HGB CONC 32.9 g/dl (31.0-37.0); MEAN PLATELET VOLUME 9.2 fl (7.0-11.0); MONO # 0.5 (0.1-0.6); MONO % 8.2 % (1.0-6.0); WHITE BLOOD COUNT 6.6 10^3/ul (4.5-11.0)
[2017-02-02 17:39] LABS: ALB/GLOB RATIO 1.5 (1.1-1.8); ALKALINE PHOSPHATASE 65 U/L (38-126); ALT/SGPT 37 U/L (7-56); AST/SGOT 54 U/L (14-36); BILIRUBIN,TOTAL 0.3 mg/dL (0.2-1.3); BLOOD UREA NITROGEN 14 mg/dL (7-21); CALCIUM 8.7 mg/dL (8.4-10.5); CARBON DIOXIDE 24 mmol/L (21-33); CHLORIDE 92 mmol/L (98-107); GFR AFRICAN-AMERICAN > 60; GLUCOSE,RANDOM 89 mg/dL (70-110); POTASSIUM 4.3 mmol/L (3.6-5.0); SODIUM 129 mmol/L (132-148); TOTAL PROTEIN 6.7 g/dL (5.8-8.3)
[2017-02-02 18:39] LABS: URINE BILIRUBIN NEGATIVE (NEGATIVE); URINE BLOOD NEGATIVE (NEGATIVE); URINE GLUCOSE (UA) NEGATIVE (NEGATIVE); URINE KETONE NEGATIVE (NEGATIVE); URINE LEUKOCYTE ESTERASE NEGATIVE Leu/uL (NEGATIVE); URINE PROTEIN NEGATIVE mg/dL (<30 mg/dL); URINE UROBILINOGEN 0.2 E.U./dL (<1 E.U./dL)
[2017-02-02 18:42] LABS: URINE APPEARANCE CLEAR (CLEAR); URINE COLOR YELLOW (YELLOW)
[2017-02-03 10:30] VITALS: O2SAT 99
[2017-02-03] MEDS ORDERED: Magnesium Hydroxide Susp 30 ml UD PO PRN (10:55)
[2017-02-03] MEDS ORDERED: Alum-Mag Hydrox-Simethicone Susp (30 mL) PO PRN (10:55)
--- NOTE | 2017-02-03 11:07 | RAD ---
HISTORY: medical clearance COMPARISON: 01/27/2017 FINDINGS: LUNGS: No active pulmonary disease. PLEURA: No significant pleural effusion identified, no pneumothorax apparent. CARDIOVASCULAR: Normal. OSSEOUS STRUCTURES: No significant abnormalities. VISUALIZED UPPER ABDOMEN: Normal. OTHER FINDINGS: None. IMPRESSION: No active disease.
--- NOTE | 2017-02-03 13:40 | PCM.BM ---
<Jorge Talley - Last Filed: 02/03/17 13:35> Treatment Plan Problems - Problems identified on initial assessmt Suicidal Ideation Date Initiated: 02/03/17 Time Initiated: 13:36 Assessment reference: NA Status: Active Priority: 3 Anxiety Date Initiated: 02/03/17 Time Initiated: 13:35 Assessment reference: NA Status: Active Priority: 4 Hopelessness Date Initiated: 02/03/17 Time Initiated: 13:40 Assessment reference: NA Status: Active Priority: 1 Worthlessness Date Initiated: 02/03/17 Time Initiated: 13:40 Assessment reference: NA Priority: 2 Treatment assets and liabiliti Patient Assests: adapts well, insightful, self-reliant, ADL independent, negotiates basic needs, cognitively intact Patient Liabilities: financial problems, poor support system, substance abuse - Milieu Protocol Maintain good personal hygiene: daily Encourage regular showers Maintain personal safety: every shift Educate patient to report safety concerns to staff, every shift Monitor environment for contraband/sharps Medication safety: Monitor for expected outcome, potential side effects: every shift, Assess barriers to learning: every shift, Assess readiness for medication education: every shift Discharge/Continuing Care - Education Needs Education Needs: Patient Medication, Patient Diagnosis/Disease Process, Patient Coping Skills - Discharge Discharge Criteria: Tolerates medication w/o severe side effects, Normal sleep pattern <Modesta Bah - Last Filed: 02/04/17 13:22> - Diagnosis (1) Polysubstance abuse Status: Acute Interventions: 02/04/17 13:21 Maintaining sobriety Relapse prevention Possible rehabilitation Motivational interviewing 12-step programs: AA meetings (2) Borderline personality disorder Status: Acute Interventions: 02/04/17 13:21 Psychoeducation Psychopharmacology/adjustment of medications as needed/ monitoring possible side effects Compliance with medications and follow up appointments Suicide and homicide risk assessment and prevention, coping strategies, safety plan As outpatient: Transference-focused psychotherapy/dialectical behavioral therapy /schema therapy (3) Substance induced mood disorder Status: Acute Interventions: 02/04/17 13:22 Maintaining sobriety Relapse prevention Possible rehabilitation Motivational interviewing 12-step programs: AA meetings med management
--- NOTE | 2017-02-03 18:05 | CARD ---
APPROVED REPORT EKG Measurement Heart [id number] <Conclusion> Normal sinus rhythm Normal ECG
[2017-02-03] MEDS ORDERED: Divalproex 500 mg ER (ONCE DAILY formulation) PO SCH (22:00)
[2017-02-04 07:31] VITALS: PULSE 66; RESP 20; TEMP 97.2
[2017-02-04 07:33] VITALS: BP 168/96
[2017-02-04 07:38] LABS: BLOOD UREA NITROGEN 12 mg/dL (7-21); CALCIUM 9.5 mg/dL (8.4-10.5); CARBON DIOXIDE 28 mmol/L (21-33); CHLORIDE 98 mmol/L (98-107); CHOLESTEROL 172 mg/dL (130-200); GFR AFRICAN-AMERICAN > 60; GLUCOSE,FASTING 92 mg/dL (65-110); GLUCOSE,RANDOM 92 mg/dL (70-110); POTASSIUM 4.4 mmol/L (3.6-5.0); SODIUM 134 mmol/L (132-148)
[2017-02-04 07:55] LABS: FREE T4 0.98 ng/dL (0.78-2.19)
[2017-02-04] MEDS ORDERED: Multivitamin With Minerals Tab PO SCH (08:00)
[2017-02-04 08:09] LABS: THYROID STIMULATING HORMONE 2.44 mIU/mL (0.46-4.68)
[2017-02-04 10:05] LABS: HEMATOCRIT 36.1 % (36.0-48.0); MEAN CELL VOLUME 87.2 fl (80.0-105.0); MEAN CORPUSCULAR HEMOGLOBIN 29.2 pg (25.0-35.0); MEAN CORPUSCULAR HGB CONC 33.5 g/dl (31.0-37.0); MEAN PLATELET VOLUME 9.7 fl (7.0-11.0); RED CELL DISTRIBUTION WIDTH 17.1 % (11.5-14.5); WHITE BLOOD COUNT 4.9 10^3/ul (4.5-11.0)
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
--- NOTE | 2017-02-04 18:44 | CP.PCM.CON ---
<Allen Chapin - Last Filed: 02/04/17 20:43> History of Present Illness - History of Present Illness History of Present Illness: 51 y.o female, admitted to the Psych unit for evaluation and treatment of depression and anxiety. ROS (-) Fevers, chills, CP, SOB, Abdominal Pain, N/V/D. A/V hallucinations. suicidal/homicidal ideations (+) Right plantar heel pain. PMHx: HTN, NM x 2, CVA, seizures, COPD, depression, bipolar disorder, polysubstance abuse including alcohol and cocaine, anemia. 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 Hos: 01/29 for hyponatremia Meds: Lisinopril, Plavix, Lipitor Review of Systems - Review of Systems Review of Systems: As per HPI Past Patient History - Infectious Disease Hx of Infectious Diseases: None - Tetanus Immunizations Tetanus Immunization: Unknown - Past Medical History & Family History Past Medical History?: Yes - Past Social History Smoking Status: Light Smoker < 10 Cigarettes Daily - CARDIAC Hx Hypertension: Yes - PULMONARY Hx Chronic Obstructive Pulmonary Disease (COPD): Yes - NEUROLOGICAL Hx Migraine: Yes Hx Seizures: Yes (ETOH related) - HEENT Hx HEENT Problems: No - RENAL Hx Chronic Kidney Disease: No - ENDOCRINE/METABOLIC Hx Endocrine Disorders: No - HEMATOLOGICAL/ONCOLOGICAL Hx Blood Disorders: No Hx Cancer: No - INTEGUMENTARY Hx Dermatological Problems: No - MUSCULOSKELETAL/RHEUMATOLOGICAL Hx Fractures: Yes (right wrist due to fall) - GASTROINTESTINAL Hx Gastrointestinal Disorders: No - GENITOURINARY/GYNECOLOGICAL Hx Sexually Transmitted Disorders: No - PSYCHIATRIC Hx Anxiety: Yes Hx Depression: Yes Hx Substance Use: Yes - SURGICAL HISTORY Hx Cholecystectomy: Yes - ANESTHESIA Hx Anesthesia: Yes Hx Anesthesia Reactions: No Hx Malignant Hyperthermia: No Meds Home Medications: Home Medication List Medication Instructions Recorded Confirmed Type Divalproex [Depakote ER(ONCE 500 mg PO HS #14 ter 02/04/17 Rx DAILY)] Gabapentin [Neurontin] 100 mg PO TID #45 cap 02/04/17 Rx Multimineral/Multivitamin 1 tab PO 0800 #14 tab 02/04/17 Rx [Therapeutic-M Tab] Nicotine 21 mg/24 hr [Nicoderm Cq] 1 patch TD DAILY #14 patch 02/04/17 Rx Thiamine [Vitamin B1 Tab] 100 mg PO DAILY #14 tab 02/04/17 Rx Allergies/Adverse Reactions: Allergies Allergy/AdvReac Type Severity Reaction Status Date / Time FISH Allergy ITCHING Verified 02/03/17 19:02 Penicillins AdvReac URTICARIA Verified 02/03/17 19:02 Physical Exam - Head Exam Head Exam: ATRAUMATIC, NORMOCEPHALIC - Eye Exam Eye Exam: EOMI, Normal appearance - Respiratory Exam Respiratory Exam: Clear to Auscultation Bilateral, NORMAL BREATHING PATTERN. absent: Rales, Rhonchi, Wheezes, Stridor - Cardiovascular Exam Cardiovascular Exam: RRR, +S1, +S2 - GI/Abdominal Exam GI & Abdominal Exam: Normal Bowel Sounds, Soft. absent: Tenderness - Neurological Exam Neurological exam: Alert, Normal Gait, Oriented x3 - Psychiatric Exam Psychiatric exam: Normal Affect, Normal Mood - Skin Skin Exam: Dry, Intact, Normal Color, Warm Results - Vital Signs Recent Vital Signs: Last Vital Signs Temp 97.2 F L 02/04/17 07:31 Pulse 66 02/04/17 07:31 Resp 20 02/04/17 07:31 BP 168/96 H 02/04/17 07:31 Pulse Ox 99 02/03/17 10:56 - Labs Result Diagrams: 02/04/17 10:02 02/04/17 07:21 Labs: Laboratory Results - last 24 hr 02/04/17 02/04/17 02/04/17 07:21 07:21 07:21 WBC RBC Hgb Hct MCV MCH MCHC RDW Plt Count MPV Sodium 134 Potassium 4.4 Chloride 98 Carbon Dioxide 28 Anion Gap 12 BUN 12 Creatinine 0.6 Est GFR ( Amer) > 60 Est GFR (Non-Af Amer) > 60 Random Glucose 92 Fasting Glucose 92 Calcium 9.5 Triglycerides 59 Cholesterol 172 LDL Cholesterol Direct 52 HDL Cholesterol 106 H Free T4 0.98 TSH 3rd Generation 2.44 RPR Nonreactive 02/04/17 10:02 WBC 4.9 D RBC 4.14 Hgb 12.1 Hct 36.1 MCV 87.2 MCH 29.2 MCHC 33.5 RDW 17.1 H Plt Count 280 MPV 9.7 Sodium Potassium Chloride Carbon Dioxide Anion Gap BUN Creatinine Est GFR ( Amer) Est GFR (Non-Af Amer) Random Glucose Fasting Glucose Calcium Triglycerides Cholesterol LDL Cholesterol Direct HDL Cholesterol Free T4 TSH 3rd Generation RPR Assessment & Plan - Assessment and Plan (Free Text) Assessment: 51 year old female admitted for treatment of depression and anxiety. Consulted for evaluation and treatment of medical issues. Plan: 1. Right heel pain. Likely plantar fasciitis -Motrin 400mg Dispo: Sign off pending evaluation with attending. Patient was discharged be for Attending could evaluate. Patient discussed with Attending Allen Chapin PGY-1 - Date & Time Date: 02/04/17 Time: 20:49 <Lali Akhtar - Last Filed: 02/05/17 14:04> Results - Vital Signs Recent Vital Signs: Last Vital Signs Temp 97.2 F L 02/04/17 07:31 Pulse 66 02/04/17 07:31 Resp 20 02/04/17 07:31 BP 168/96 H 02/04/17 07:31 Pulse Ox 99 02/03/17 10:56 - Labs Result Diagrams: 02/04/17 10:02 02/04/17 07:21 Labs: Laboratory Results - last 24 hr 02/04/17 07:21 RPR Nonreactive Attending/Attestation - Attestation I have personally seen and examined this patient.: Yes I have fully participated in the care of the patient.: Yes I have reviewed all pertinent clinical information: Yes Notes (Text): 02/05/17 14:02 attending note; Patient was discharged before seen by me. patient is well known to service due to multiple admissions secondary to alcohol abuse/drug abuse/malingering. Patient was admitted to psych for depression. labs reviewed. alcohol abuse/Barbiturate use/cocaine abuse. Hyponatremia resolved. Chronic pain syndrome;Motrin when necessary. 02/05/17 14:03
== END 2017-02-04 13:56 | disposition home or self-care (01) | DRG 747 ==
LOC: ED 15:41 → PSYC 02-03 10:22
PROVIDERS: ADMIT Psychiatry & Neurology Psychiatry; ATTEND Psychiatry & Neurology Psychiatry
DX: F19.10 Other psychoactive substance abuse, uncomplicated (principal); J44.9 Chronic obstructive pulmonary disease, unspecified; F14.10 Cocaine abuse, uncomplicated; F31.9 Bipolar disorder, unspecified; I10 Essential (primary) hypertension; F60.3 Borderline personality disorder; F17.210 Nicotine dependence, cigarettes, uncomplicated; M77.30 Calcaneal spur, unspecified foot; I25.2 Old myocardial infarction; Z86.73 Personal history of transient ischemic attack (TIA), and cerebral infarction without residual deficits